=== PATIENT | female | born 1960 | race Caucasian/White ===

== ENCOUNTER 2021-08-07 10:33 | Emergency (ER) | payer OTHER, SELFPAY ==
[2021-08-07 10:46] VITALS: BP 153/89; PULSE 76; RESP 16; TEMP 36.2; O2SAT 99
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
== END 2021-08-07 12:00 | disposition home or self-care (01) ==
PROVIDERS: Emergency Provider Emergency Medicine; PCP Internal Medicine Geriatric Medicine
DX: R07.89 Other chest pain (principal)
CPT/HCPCS: 99203; G0463

== ENCOUNTER 2021-08-13 17:30 | Outpatient (CLI) | payer BC, SELFPAY ==
--- NOTE | ~2021-08-13 | MM_ITS ---
EXAMINATION: MM screening [facility] BI w cristino HISTORY: Screening mammogram TECHNIQUE: Craniocaudal and mediolateral oblique 3-D tomosynthesis images were obtained and synthetic 2-D images were generated. CAD analysis was submitted and interpreted. COMPARISON: 06/05/2015, 08/17/2012, 07/25/2011 BREAST PARENCHYMAL COMPOSITION: There are scattered areas of fibroglandular density. FINDINGS: There is no evidence of suspicious mass, calcification, or architectural distortion to sugg est malignancy in either breast. There has been no suspicious interval change. IMPRESSION: 1. No mammographic evidence of malignancy. 2. Recommend routine screening mammography in one year. BI-RADS Category 1: Negative Reviewed, dictated and finalized at location A. LS TRAINER
== END 2021-08-13 17:31 | disposition home or self-care (01) ==
PROVIDERS: PCP Internal Medicine Geriatric Medicine; Visit Provider Internal Medicine Geriatric Medicine
DX: Z12.31 Encounter for screening mammogram for malignant neoplasm of breast (principal)
CPT/HCPCS: 77063; 77067

== ENCOUNTER 2024-09-13 08:03 | Emergency (ER) | payer MEDICARE, SELFPAY ==
--- NOTE | ~2024-09-13 | XR_ITS ---
EXAMINATION: XR chest 1V portable DATE: 09/13/2024 10:40 INDICATION: Cough TECHNIQUE: frontal view of the chest was obtained. COMPARISON: Chest radiograph dated 10/18/17 FINDINGS: Calcified nodules in the right lower lung zone consistent with old granulomatous disease. No other ai rspace opacities, pulmonary edema, pleural effusion or pneumothorax. The cardiomediastinal silhouette is normal. Anterior plate-screw fixation for lower cervical anterior spinal fusion. IMPRESSION: 1. No acute cardiopulmonary disease. Reviewed, dictated and finalized at location A. CAR RENOVATOR
--- NOTE | 2024-09-13 08:08 | ECG_ITS ---
Test Date: 2024-09-13 08:11:35 Measurements Intervals [place] Rate: 117 P: 43 DC: 159 QRS: 48 QRSD: 86 T: 53 QT: 296 QTc: 414 Interpretive Statements SINUS TACHYCARDIA ABNORMAL ECG No previous ECG available for comparison Electronically Signed On 09-13-2024 08:13:08 BRICK OFF BEARER by Ashok Villanueva D.O.
[2024-09-13 08:10] VITALS: BP 162/83; PULSE 113; RESP 24; TEMP 36.5; O2SAT 98
--- OUTSIDE RECORDS SUMMARY | 2024-09-13 08:14 | XMS_ITS | Referral Summary ---
Author Organization [facility] Address [address] [place] [address] Care Team Providers Care Statistics Manager Name Role Phone Unavailable Primary Care Provider Unavailabl e Source Comments [facility],non-owned Affiliates and Associated Physician Practices is amultiple site organization consisting of ambulatory clinics and hospital sitesin [place], [place], [place] and [place]. This disclosure is being madepursuant to the Care Everywhere program and may not contain all information available regarding this patient. Last updated 18.[facility] Social History Tobacco Use Types Packs/Day Years Used Date Smoking Tobacco: Never Assessed Sex and Gender Information Value Date Recorded Sex Assigned at Not on file Gender Identity Not on file Sexual Orientation Not on file Plan of Treatment Not on file
--- OUTSIDE RECORDS SUMMARY | 2024-09-13 08:14 | XMS_ITS | Clinical Summary ---
Author Organization [facility] Physician Office Building [address] [place] [phone] Care Team Providers Care Seed Analysis Laboratory Assistant Name Role Phone Edwin Epstein MD Primary Care Provider + Allergies Active Allergy Reactions Criticality Noted Date Comments Atorvastatin Other (See comments) Low 11/28/2021 Reaction: Medications sodium, potassium & mag sulfates (SUPREP BOWEL KIT) 17.5-3.13-1.6 gram recon solnIndications :Bowel Evacuation Mix bottle of Suprep with water and drink at 4pm, repeat and drink at 10pm day before procedure 354 mL 7 Active traZODone (DESYREL) 50 mg tablet Take 100 mg by mouth nightly 2 Active gabapentin (NEURONTIN) 300 mg capsule Take 600 mg by mouth 3 (three) times a day 2 Active clonazePAM (KlonoPIN) 1 mg tablet Take 1 mg by mouth nightly 2 Active baclofen (LIORESAL) 10 mg tablet Take 10 mg by mouth 3 (three) times a day as needed 2 Active ALPRAZolam (XANAX) 1 mg tablet Take 1 mg by mouth 3 (three) times a day 2 Active oxyCODONE (ROXICODONE) 10 mg tablet TAKE ONE TABLET BY MOUTH FOUR TIMES A DAY OR NEEDED 2 Active Active Problems No known active problems Surgical History Surgery Date Site/Laterality Comments CARPAL TUNNEL RELEASE 08/10/2000 - 08/09/2001 Bilateral MANDIBLE FRACTURE SURGERY 08/10/2002 - 08/09/2003 TMJ LUMBAR FUSION Family History Medical History Relation Name Comments Thyroid disease Mother Arthritis Other 1 Arthritis - (Ad ded by TW Conv) Thyroid disease Other 2 Thyroid Diso rder - (Added by TW Conv) Relation Name Status Comments Mother Other 1 Other 2 Social History Tobacco Use Types Packs/Day Years Used Date Smoking Tobacco: Never Smokeless Tobacco: Never Tobacco Cessation:Counseling Given: Not Answered PHQ-2 Answer Date Recorded PHQ-2 Total Score (If total score is 3 or more points, staff should administer the PHQ-9) 0 11/28/2021 Comments No Sex and Gender Information Value Date Recorded Sex Assigned at Not on file Legal Sex Female 1:49 AM UNDERGROUND SUPERVISOR Gender Identity Not on file Sexual Orientation Not on file Obstetrics History Para Term AB IAB SAB Ectopic Multiple Livin g Live Births 2 1 1 1 1 1 1 Date Outcome GA Total Labor Labor/2nd/3rd Weight Sex Type Anes PTL [place] A1 A5 Name Clin SAB 1980 Term 3.941 kg (8 lb 11 oz) Vag-S pont Living Last Filed Vital Signs Vital Sign Reading Time Taken Comments Blood Pressure 124/80 07/22/2022 4:09 PM UNDERGROUND SUPERVISOR Pulse 85 10/08/2012 2:27 PM UNDERGROUND SUPERVISOR Temperature - - Respiratory Rate - - Oxygen Saturation 99% 10/08/2012 2:27 PM UNDERGROUND SUPERVISOR Inhaled Oxygen Concentration - - Weight 88 kg (194 lb) 07/22/2022 4:09 PM UNDERGROUND SUPERVISOR Height 162.6 cm (5' 4 ) 07/22/2022 4:09 PM UNDERGROUND SUPERVISOR Body Mass Index 33.3 07/22/2022 4:09 PM UNDERGROUND SUPERVISOR Plan of Treatment Health Maintenance Due Date Last Done Comments Breast Cancer Screening-Mammogram 1959 Fall Risk Assessment 1959 Hepatitis C Screening 1959 Osteoporosis Screening-Bone Density Scan 1959 DTaP/Tdap/Td Vaccine (1 - Tdap) 1970 Hepatitis B Screening 1977 Zoster Vaccine (1 of 2) 2009 Depression Screening 11/28/2022 11/28/2021 Cervical Cancer Screening 07/22/2023 07/22/2022, Pneumococcal vaccine 65+ (1 of 1 - PCV) 2024 Well Visit 65+ 2024 11/28/2021 Influenza Vaccine (#1) 2024 Colon Cancer Screening-Colonoscopy 05/25/20272016 Colon Cancer Screening-CT Colonography Discontinued Colon Cancer Screening-DNA Stool Discontinued 05/25/20 Colon Cancer Screening-FIT Discontinued 05/25/2017 Colon Cancer Screening-Sigmoidoscopy Discontinued 05/10 Procedures Procedure Name Priority Date/Time Associated Diagnosis Comments PAP AND HIGH RISK HPV, REFLEX TO GENOTYPING Routine 07/22/2022 4:13 PM UNDERGROUND SUPERVISOR Atypical squamous cells of undetermined significance on cytologic smear of cervix (ASC-US) COLONOSCOPY REPORT 05/25/2017 from Last 3 Months or Most Recently Relevant to Health Maintenance Results * Pap and High Risk HPV, reflex to Genotyping (07/22/2022 4:13 PM UNDERGROUND SUPERVISOR) CLINICAL INFORMATION: [employer] [facility] Comment:ASCUS HPV+ LMP [facility] [facility] Comment:POST MENOPAUSAL Previous Pap [facility] [facility] Comment:NONE GIVEN Prev. Bx [facility] [employer] [facility] Comment:NONE GIVEN SOURCE: [facility] [employer] [facility] Comment:Cervix, Endocervix Pap, specimen adequacy [facility] Comment:SATISFACTORY FOR AMARA LUATION HPV interp [facility] Comment: Negative for intraepithelial lesion or malignancy. Atrophic pattern; predominantly parabasal cells Civil Clerk [facility] Comment: MASON CLARK(ASCP) CT Screening Location: [place] [address] [place] [address] Comment [facility] [employer] [facility] Comment: EXPLANATORY NOTE: The Pap is a screening test for cervical cancer. It is not a diagnostic test and is subject to false negative and false positive results. It is most reliable when a satisfactory sample, regularly obtained, is submitted with relevant clinical findings and history, and when the Pap result is evaluated along with historic and current clinical information. Human papillomavirus DNA, High Risk E6/E7 Not Detected NOT DETECTED [employer] [facility] [place] Comment: Not Detected High Risk HPV types (16,18,31,33,35,39,45,51,52, 56,58,59,66,68) were not detected. Other HPV types which cause anogenital lesions may be present. The significance of the other types of HPV in malignant processes has not been established. Methodology: Real Time PCR ? Thin prep 07/22/2022 4:13 PM UNDERGROUND SUPERVISOR 07/23/2022 2:46 AM UNDERGROUND SUPERVISOR Jaida Michelle RADIATION / CHEMISTRY TECHNICIAN LAB CYTOLOGY ORDERABLES Final Re sult [facility] [address] [place] [address] [employer] [address] [place] [address] * COLONOSCOPY REPORT (05/25/2017) Anatomical Region Laterality Modality Other Provider Scanning GI PROCEDURE ORDERABLES Final Result from Last 3 Months or Most Recently Relevant to Health Maintenance Insurance [address] OPEN ACCESS Care Teams Seed Analysis Laboratory Assistant Relationship Specialty [place] [id number] [address] [facility] [address] [place] [address] PCP - General Internal Medicine 04/06/17
--- OUTSIDE RECORDS SUMMARY | 2024-09-13 08:14 | XMS_ITS | Referral Summary ---
Author Organization [facility] Physician Office Building [address] [place] [phone] Care Team Providers Care Sld Teacher Name Role Phone Edwin Epstein MD Primary [...] Active Active Problems No known active problems Social History Tobacco Use Types Packs/Day Years Used Date Smoking Tobacco: Never Smokeless Tobacco: Never Tobacco Cessation:Counseling Given: Not Answered PHQ-2 Answer Date Recorded PHQ-2 Total Score (If total score is 3 or more points, staff should administer the PHQ-9) 0 11/28/2021 Comments No Sex and Gender Information Value Date Recorded Sex Assigned at Not on file Legal Sex Female 1:49 AM MUSEUM CURATOR Gender Identity Not on file Sexual Orientation Not on file Last Filed Vital Signs Vital Sign Reading Time Taken Comments Blood Pressure 124/80 07/22/2022 4:09 PM MUSEUM CURATOR Pulse 85 10/08/2012 2:27 PM MUSEUM CURATOR Temperature - - Respiratory Rate - - Oxygen Saturation 99% 10/08/2012 2:27 PM MUSEUM CURATOR Inhaled Oxygen Concentration - - Weight 88 kg (194 lb) 07/22/2022 4:09 PM MUSEUM CURATOR Height 162.6 cm (5' 4 ) 07/22/2022 4:09 PM MUSEUM CURATOR Body Mass Index 33.3 07/22/2022 4:09 PM MUSEUM CURATOR Plan of Treatment Not on file Procedures Procedure Name Priority Date/Time Associated Diagnosis Comments PAP AND HIGH RISK HPV, REFLEX TO GENOTYPING Routine 07/22/2022 4:13 PM MUSEUM CURATOR Atypical squamous cells of undetermined significance on cytologic smear of cervix (ASC-US) COLONOSCOPY REPORT 05/25/2017 from Last 3 Months or Most Recently Relevant to Health Maintenance Results * Pap and High Risk HPV, reflex to Genotyping (07/22/2022 4:13 PM MUSEUM CURATOR) CLINICAL INFORMATION: [employer] [facility] Comment:ASCUS HPV+ LMP [employer] [facility] Comment:POST MENOPAUSAL Previous Pap [employer] [facility] Comment:NONE GIVEN Prev. Bx [employer] [facility] Comment:NONE GIVEN SOURCE: [employer] [facility] Comment:Cervix, Endocervix Pap, specimen adequacy [facility] [employer] [facility] Comment:SATISFACTORY FOR AMARA LUATION HPV interp [employer] [facility] Comment: Negative for intraepithelial lesion or malignancy. Atrophic pattern; predominantly parabasal cells [facility] [employer] [facility] [employer] [facility] Comment: MASON CLARK(ASCP) CT Screening Location: [place] [address] [place], [place] [address] Comment [facility] [employer] [facility] Comment: EXPLANATORY NOTE: The Pap is a [...] High Risk E6/E7 Not Detected NOT DETECTED [employer] [facility] Comment: Not Detected High Risk HPV types (16,18,31,33,35,39,45,51,52, 56,58,59,66,68) were not detected. Other HPV types which cause anogenital lesions may be present. The significance of the other types of HPV in malignant processes has not been established. Methodology: Real Time PCR ? Thin prep 07/22/2022 4:13 PM MUSEUM CURATOR 07/23/2022 2:46 AM MUSEUM CURATOR Jaida Michelle NP LAB CYTOLOGY ORDERABLES Final Re sult [facility] [address] [place] [address] [employer] [address] [place] [address] * COLONOSCOPY REPORT (05/25/2017) Anatomical Region Laterality Modality Other Provider Scanning GI PROCEDURE ORDERABLES Final Result from Last 3 Months or Most Recently Relevant to Health Maintenance Insurance REPLACED BY [facility] OPEN ACCESS Care Teams Sld Teacher Relationship Specialty [place] [id number] [place] [address] PCP - General Internal Medicine 04/06/17
--- OUTSIDE RECORDS SUMMARY | 2024-09-13 08:14 | XMS_ITS | Encounter Summary ---
Author Organization [facility] Address [address] [place] [address] Care Team Providers Care Window Clerk Name Role Phone Unavailable Primary Care Provider Unavailabl e Encounter Details Date Type Department Care Team (Late st Contact Info) Description 10/09/2023 Lab Requisition [facility] [address] [place] [phone] Lencho Slater Jr., MD [address] [place] [address] Social History Tobacco Use Types Packs/Day Years Used Date Smoking Tobacco: Never Assessed Sex and Gender Information Value Date Recorded Sex Assigned at Not on file Gender Identity Not on file Sexual Orientation Not on file documented as of this encounter Plan of Treatment Not on file documented as of this encounter Procedures Procedure Name Priority Date/Time Associated Diagnosis Comments DERMATOPATHOLOGY Routine 10/08/2023 3:33 AM AUTOMOBILE SERVICE STATION MANAGER documented in this encounter Results * DERMATOPATHOLOGY (10/08/2023 3:33 AM AUTOMOBILE SERVICE STATION MANAGER) Case Report Dermatopathology Report ? Case: [id number] ? Authorizing Provider: ??Lencho Slater Jr., MD ??Collected: ? 10/08/2023 03:33 AM ? Ordering Location: ? [facility] ? Received: ?10/09/2023 12:53 PM ? Pathologist: ? Kasey Pillai, ? MD ? Specimen: ?Skin, right superior posterior neck ? 1:19 PM [facility] Final Diagnosis Specimen A. 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 1:19 PM [facility] Gross Description Specimen A: Received is one formalin filled container labeled with the patient's name and designated right superior posterior neck. The specimen consists of a shave biopsy measuring 7x7x3 mm. Jar 0. 1:19 PM [facility] Microscopic Description Specimen A. SKIN, right superior posterior neck: Sections show a proliferation of blood vessels in lobules lined by uniform endothelial cells and by fibrous septa. The stroma is fibrotic and contains a mixed inflammatory cell infiltrate. The overlying epidermis is eroded. 1:19 PM [facility]ER[facility] Disclaimer An external and internal positive and negative controls are appropriate for the histochemical, immunohistochemical and immunofluorescence stain(s) in this case (if any), except where stated explicitly. The performance characteristics of the stain(s) cited in this report were developed and its performance characteristic determined by the Dermatopathology Laboratory at [facility], directed by Dr. Nick Huff. These tests need not be, and therefore are not, approved by the [place] Food and Drug Administration. The tests are used for clinical purposes. Billing Codes Specimen Charges Stain Charges 42813 1 4 1:19 PM AUTOMOBILE SERVICE STATION MANAGER DERMATOPATHOLOGY LABORATORY Embedded Images 4 1:19 PM AUTOMOBILE SERVICE STATION MANAGER DERMATOPATHOLOGY LABORATORY Pathology/Cytolo gy TISSUE SPECIMEN FROM SKIN / Unknown 10/08/2023 3:33 AM AUTOMOBILE SERVICE STATION MANAGER 10/09/2023 12:53 PM AUTOMOBILE SERVICE STATION MANAGER Lencho Slater Jr., MD LAB - PATHOLOGY /CYTOLOGY ORDERABLES DERMATOPATHOLOGY LABORATORY [facility] - Department of Dermatology [address] [phone] documented in this encounter Visit Diagnoses Not on filedocumented in this encounter
--- OUTSIDE RECORDS SUMMARY | 2024-09-13 08:14 | XMS_ITS | Clinical Summary ---
Author Organization [facility] Address [address] [place] [address] Care Team Providers Care Back Shoe Worker Name Role Phone Unavailable Primary Care Provider Unavailabl e Source Comments [facility],non-owned Affiliates and Associated Physician Practices is amultiple site organization consisting of ambulatory clinics and hospital sitesin [place], [place], [place] and [place]. This disclosure is being madepursuant to the Care Everywhere program and may not contain all information available regarding this patient. Last updated 18.[facility] Social History Tobacco Use Types Packs/Day Years Used Date Smoking Tobacco: Never Assessed Sex and Gender Information Value Date Recorded Sex Assigned at Not on file Gender Identity Not on file Sexual Orientation Not on file Plan of Treatment Health Maintenance Due Date Last Done Comments BONE DENSITY TESTING 1960 COLOGUARD (AGES 45-75) - COL ON CA SCREENING 1959 COLON MONITORING 1959 COLONOSCOPY - COLON CA SCREENING 1959 CT COLONOGRAPHY - COLON CA SCREENING 1959 Colorectal Cancer Screening 1959 FIT - COLON CA SCREENING 1959 FLEX SIG - COLON CA SCREENING 1959 LIPID TESTING 1959 MAMMOGRAM 1959 PAP SMEAR 1959 HIV SCREENING 1974 HEPATITIS C SCREENING 03/30/1977 DTAP/TDAP/TD VACCINES (1 - Tdap) 1978 PNEUMOCOCCAL VACCINE 50+ (1 of 1 - PCV) 2009 ZOSTER VACCINE (1 of 2) 2009 COVID-19 VACCINE ( - 2023-2 5 season) 2024 INFLUENZA VACCINE (#1) 2024 DEPRESSION SCREENING 08/10/2024 Respiratory Syncytial Virus (RSV) Vaccine Pt: or over 60 yrs (1 - 1-dose 75+ series) 2034 HEPATITIS B VACCINE Aged Out No longe r eligible based on patient's age to complete this topic HIB VACCINE Aged Out No longer eligi ble based on patient's age to complete this topic HPV VACCINE Aged Out No longer eligi ble based on patient's age to complete this topic MENINGOCOCCAL (Group B) VACCINE Aged Out No longer eligible based on patient's age to complete this topic MENINGOCOCCAL VACCINE Aged Out No jasson margy eligible based on patient's age to complete this topic
--- OUTSIDE RECORDS SUMMARY | 2024-09-13 08:14 | XMS_ITS | Data Portability ---
[facility] Address [address] [place] [address] Assessment No assessment recorded. Plan of Treatment Reminders Order Date Submit Date Provider Last Modified By Organization Details Last Modified Time Details Appointments None recorded. Lab pap, IG + HPV, cervical 2014 015 [facility], [address] [facility], [address], [place], [address], 5 07:30:26 pap, IG + HPV, cervical 2018 019 [facility], [address] [facility], [address], [place], [address], 9 06:09:11 Referral gastroent erologist referral 2014 015 HOLLY Bob MD, [address] [place], [address], 5 10:15:39 general surgeon referral 2014 016 [email or web address] Kelly MD, [address] [facility], [place], [address], 6 12:43:07 Procedures None recorded. Surgeries None recorded. Imaging mammogram , screening 2014 015 [email or web address] [facility], [address], [address], [place], [address], 5 09:13:15 MAMMO, screening , bilateral 2018 019 [facility], [address], [place] [facility], [place], [address], 9 17:41:35 Medication Orders estradiol 10 mcg vaginal tablet 2018 019 [facility] [id number], [address], 9 17:42:18 multivita min tablet 2018 019 [facility] [id number], [address], 9 17:41:30 Calcium with Vitamin D 600 mg-10 mcg (400 unit) tablet 2018 019 [facility] [address], [address], 9 17:41:31 Patient TargetsNo targets recorded. Patient Instructions Encounter Date Encounter Id Patient Instructions Last Modified By Organization Details Last Modified Time 05/31/2015 [id number] hemorrhoids: care instructions [email or web address] Not available 06/01/2015 09:40:27 09/23/2018 [id number] kegel exercises [facility] Not availabl e 09/23/2018 17:40:25 mammogram: about this test radha Not available 09/23/2018 17:41:35 Reason for Referral Referring Physician: Eric price [employer], Encounter Date: 05/31/2015 General Surgeon Referral for Hemorrhoids Referring Physician: Eric Sloan [employer], Encounter Date: 05/31/2015 Results Created Date Observation Date Name Description Value Unit Range Abnormal Flag Note LastModifiedBy Organization Detail LastModifiedTime 06/01/20 15 06/04/2015 pap, IG + HPV, cervi giuliana HPV aptima NEGATI VE negati ve THIS TEST DETEC TS FOURT EEN HIGH- RISK HPV TYPES (16/1 8/31/ 33/35 /39/4 5/ 51/52 /56/5 8/59/ 66/68 ) WITHO PAT BARNHART ATION . Not Available [facility] ([facility]) [address] [facility], [place], [address], 06/05/2015 07:30:26 06/01/20 15 06/05/2015 pap, IG + HPV, cervi giuliana diagnosis: SEEMA JOSEPH ALESIA FOR INTRA EPITH ELIAL LESIO N AND JAN LAI . CELLU LAR RAMOS ES ASSOC IATED WITH ATROP HY ARE PRESE NT. Not Available [facility] ([facility]) [address] [facility], [place], [address], 06/05/2015 07:30:26 06/01/20 15 06/05/2015 pap, IG + HPV, cervi giuliana specimen adequacy: SEEMA Horan SATIS FACTO RY FOR EVALU ATION . ENDOC ERVIC AL COMPO NENT MAY NOT BE DISTI NGUIS HED IN CASES OF ATROP HY. Not Available [facility] ([facility]) [address] [facility], [place], [address], 06/05/2015 07:30:26 06/01/20 15 06/05/2015 pap, IG + HPV, cervi giuliana performed by: SEEMA Betancourt, CYTOTj Horan (ASCP ) Not Available [facility] ([facility]) [address] [place], [address], 06/05/2015 07:30:26 06/01/20 15 06/05/2015 pap, IG + HPV, cervi giuliana . . Not Available [facility] ([facility]) [address] [place], [address], 06/05/2015 07:30:26 06/01/20 15 06/05/2015 pap, IG + HPV, cervi giuliana note: SEEMA Horan THE PAP SMEAR IS A SCREE FLORI TEST DESIG KEVIN TO AID IN THE DETEC TION OF RICHARD LIGNA NT AND MALIG NANT CONDI TIONS OF THE UTERI NE CERVI X. IT IS NOT A DIAGN OSTIC PROCE DURE AND SHOUL D NOT BE USED THE SOLE MEANS OF DETEC TING CERVI GIULIANA CANCE R. BOTH FALSE -POSI TIVE AND FALSE -NEGA TIVE REPOR TS DO OCCUR . Not Available [facility] ([facility]) [address] [place], [address], 06/05/2015 07:30:26 06/01/20 15 06/05/2015 pap, IG + HPV, cervi giuliana test methodology: COMMEN T THIS LIQUI D BASED THINP REP(R ) PAP TEST WAS CÉSAR LUNA WITH THE USE OF AN IMAGE GUIDE Kamilah Hooker. Not Available [facility] ([facility]) [address] [place], [address], 06/05/2015 07:30:26 09/23/19 19 09/27/2018 pap, IG + HPV, cervi giuliana diagnosis: Commen t NEGAT ALESIA FOR INTRA EPITH ELIAL LESIO N OR JAN LAI . CELLU VISHAL RAMOS ES ASSOC IATED WITH ATROP HY ARE PRESE NT. Not Available [facility] ([facility]) [address] [place], [address], 09/28/2018 06:09:11 09/23/1909/27/2018 pap, IG + HPV, cervi giuliana specimen adequacy: Commen t Satis facto ry for evalu ation . Endoc ervic al compo nent may not be disti nguis hed in cases of atrop hy. Not Available [facility] ([facility]) [address] [place], [address], 09/28/2018 06:09:11 09/23/19 19 09/27/2018 pap, IG + HPV, cervi giuliana clinician provided ICD10: Commen t Z01.4 19 Not Available [facility] ([facility]) [address] [place], [address], 09/28/2018 06:09:11 09/23/1909/27/2018 pap, IG + HPV, cervi giuliana performed by: Toño Zuluaga (ASCP ) Not Available [facility] ([facility]) [address] [place], [address], 09/28/2018 06:09:11 09/23/1909/27/2018 pap, IG + HPV, cervi giuliana . . Not Available [facility] ([facility]) [address] [place], [address], 09/28/2018 06:09:11 09/23/1909/27/2018 pap, IG + HPV, cervi giuliana note: Seema horan The Pap smear is a scree flori test desig kevin to aid in the detec tion of richard ligna nt and malig nant condi tions of the uteri ne cervi x. It is not a diagn ostic proce dure and shoul d not be used as the sole means of detec ting cervi giuliana cance r. Both false -posi tive and false -nega tive repor ts do occur . Not Available [facility] ([facility]) [address] [place], [address], 09/28/2018 06:09:11 09/23/1909/27/2018 pap, IG + HPV, cervi giuliana test methodology: Seema horan This liqui d based ThinP rep(R ) pap test was scree kevin with the use of an image guide kamilah hooker. Not Available [facility] ([facility]) [address] [place], [address], 09/28/2018 06:09:11 09/23/1909/28/2018 pap, IG + HPV, cervi giuliana HPV aptima Negati ve negati ve This test detec ts fourt een high- risk HPV types (16/1 8/31/ 33/35 /39/4 5/ 51/52 /56/5 8/59/ / ) witho ut puneete renti ation . Not Available [facility] ([facility]) [address], [place], [address], 09/28/2018 06:09:11 06/06/20 15 06/06/2015 dexa PT NAME: DAVID SELBY : 1959 PT SEX/AG E: / PT ACCT NUMBER : [id number] PT MR#: [id number] ROOM/B ED: PT STATUS : REG CLI DATE OF EXAMIN ATION: ORDERI PHYSIC SALLIE: ERIC ALBERT M.Sujatha ATTEND [facility] PHYSIC SALLIE: ERIC ALBERT , M.D. DICTAT [facility] PHYSIC SALLIE: Tj CRUZ M.D. [id number] 6.001A [place] 17:56: 00 41.007 2MAM (ANDREW) : DIGITA L MAMM SCREEN -DIVINA INDICA TION: Screen ing. TECHNI QUE: Screen ing digita l mammog tyler submit [place]. CAD analys is submit [place] and interp reted. COMPAR SANTO: 013 FINDIN GS: There has been no signif icant change when compar santo was made to prior films. Breast compos ed of scatte red areas of fibrog landul ar densit y. No mammog raphic eviden ce for malign ben in either breast . Regula r clinic al breast examin ation in annual mammog josias are recomm ended. IMPRES DEISI: 1: NO MAMMOG RAPHIC EVIDEN CE OF MALIGN BEN IN EITHER BREAST AND NO CHANGE . RECOMM ENDATI ON: Routin e yearly screen ing mammog tyler and regula r clinic al breast examin ation are recomm ended. BI-RAD S CATEGO RY 1 - NEGATI VE __ Review ed, dictat ed and finali zed at Locati on A. __ Electr onical ly signed by: ASHUTOSH CRUZ Date: Time: 08:50 ASHUTOSH CRUZ M.D.__ ___ [facility] [address] [place] [address] [facility] (Imaging) [address], [place], [address], 09/23/2018 17:44:27 06/28/20 15 06/27/2015 imagi ng/di theodoraos tic resul t No observ ation record ed. [facility] Not Available 09/23 17:44:27 Result Notes None recorded. Problems Name Problem SNOMED Code Status Onset Date Resolution Date Notes Provider Name and Address Organization Details Recorded Time Hemorrhoids 50921728 Active Eric Nathalia evangelista [facility] 5 19:35:23 Problem Notes None recorded. Procedures Surgical History Date Name Laterality Status Provider Name and Address Organization Details Recorded Time 6 partial carpectomy completed Adalgisa Sanders MA [facility] 09/23/2018 17:14:41 6 Orthopedic Surgery completed Adalgisa Sanders [place] - [facility] 09/23/2018 17:15:53 5 Most Recent Mammogram completed Adalgisa Sanders [place] - [facility] 09/23/2018 17:13:28 5 Date of Last Pap Smear completed Adalgisa Sanders [place] [facility] 09/23/2018 17:12:55 1 Orthopedic Surgery completed Nan Simpson [place] [facility] 05/31/2015 18:04:19 1 Myomectomy completed Nan Simpson [place] - [facility] 05/31/2015 18:04:19 1 Orthopedic Surgery completed Adalgisa Sanders MA [facility] 09/23/2018 17:15:21 Imaging Results Imaging Date Name Status LastModified by Organiz [facility] Details LastModified Time 06/06/2015 dexa completed [facility] (Imaging) [address], [place], [address], 09/23/2018 17:44:27 06/27/2015 imaging/diag nostic result completed [facility] Information not available 09/23/2018 17:44:27 Procedure Notes None recorded. Medical Equipment None Reported. Allergies No known drug allergies Medications Name Sig Start Date Stop Date Status Note LastModified by Organization Details LastModified Time multivitamin tablet Take 1 tablet every day by oral route. 2018 active Not Available Not Available Not Avai lable prednisone 10 mg tablet 09/23 completed Not Available Not Available Not Available trazodone 50 mg tablet active Not Available Not Available No t Available azithromycin 250 mg tablet 09/23 completed Not Available Not Available Not Available alprazolam 1 mg tablet active Not Available Not Available No t Available benzonatate 200 mg capsule 09/23 completed Not Available Not Available Not Available clonazepam 1 mg tablet active Not Available Not Available No t Available doxycycline monohydrate 100 mg tablet 09/23 completed Not Available Not Available Not Available butalbital-a cetaminophen -caffeine 50 mg-325 mg-40 mg tablet 09/23 completed Not Available Not Available Not Available hydromorphon e 2 mg tablet active Not Available Not Available Not Available ciprofloxaci n 0.3 % eye drops 09/23 completed Not Available Not Available Not Available baclofen 10 mg tablet active Not Available Not Available No t Available oseltamivir 75 mg capsule active Not Available Not Available Not Available gabapentin 300 mg capsule active Not Available Not Available Not Available codeine 10 mg-guaifenes in 100 mg/5 mL oral liquid active Not Available Not Available Not Available methylpredni solone 4 mg tablets in a dose pack active Not Available Not Available No t Available amoxicillin 875 mg-potassium clavulanate 125 mg tablet 09/23 completed Not Available Not Available Not Available Ventolin HFA 90 mcg/actuatio n aerosol inhaler 09/23 completed Not Available Not Available Not Available calcium 600 mg (as carbonate)-v itamin D3 10 mcg (400 unit) tablet TAKE ONE TABLET BY MOUTH TWICE A DAY 2019 active Not Available Not Available Not Avai lable oxycodone 10 mg tablet active Not Available Not Available No t Available estradiol 10 mcg vaginal tablet Insert 1 tablet 3 times a week by vaginal route. 2018 active Not Available Not Available Not Avai lable Fluvirin 8593-9565 45 mcg (15 mcg x 3)/0.5 mL intramuscula r suspension 09/23 completed Not Available Not Available Not Available Vitals Date Recorded Body height Body mass index (BMI) Body weight Systolic blood pressure Diastolic blood pressure Provider Name and Address Organization Details Last Updated DateTime 09/23/2018 162.56 cm 31.4 kg/m2 46919.4 g 138 mm[Hg] 84 mm[Hg] Adalgisa Sanders MA [facility] 9 17:20:33 Date Recorded Body height Body mass index (BMI) Body weight Systolic blood pressure Diastolic blood pressure Provider Name and Address Organization Details Last Updated DateTime 05/31/2015 162.56 cm 29 kg/m2 48310.11 053 g 154 mm[Hg] 90 mm[Hg] Nan Simpson MA [facility] 5 18:14:33 Social History Question Answer Notes LastModified by Organizat ion Details LastModified Time Tobacco Smoking Status Never Smoker Nan Simpson MA null, [facility] 05/31/2015 18:08:00 Do You Have An Advance Directive? No Information not available 05/31/2015 What Is Your Level Of Alcohol Consumption? Occasional Information not available 05/31/2015 Is Blood Transfusion Acceptable In An Emergency? Yes Information not available 05/31/2015 What Is Your Level Of Caffeine Consumption? Moderate Information not available 05/31/2015 How Much Tobacco Do You Chew? None Information not available 05/31/2015 Are You Currently Employed? Yes Information not available 05/31/2015 What Type Of Diet Are You Following? REGULAR Information not available 05/31/2015 Which Illicit Or Recreational Drugs Have You Used? 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 With Others Information not available 05/31/2015 What Was The Date Of Your Most Recent Tobacco Screening? 09/23/2018 Information not available 03/03/2019 How Many Children Do You Have? 1 Information not available 05/31/2015 Performs Monthly Self-breast Exam? Yes Information not available 05/31/2015 What Is Your Relationship Status? Information not available 05/31/2015 Seat Belts Used Routinely Yes Information not available 05/31/2015 Are You Sexually Active? No Information not available 05/31/2015 General Stress Level High Information not available 05/31/2015 Do You Use Sunscreen Routinely? Yes Information not available 05/31/2015 Sex: Unknown Functional Status Question Answer Note LastModified by Organization D etails LastModified Time What is your exercise level? Heavy Information not available 05/31/2015 Mental Status None recorded. Family History Relationship Description Onset Age of this Age Resolved Age Notes LastModified by Organization Details LastModified Time Father Chronic obstructive pulmonary disease [email or web address] Not available 05/31 19:33:22 Father Pulmonary emphysema mwasserman Not available 05/31 19:33:22 Mother Thyroiditis mwasserman Not avai lable 05/31/2015 19:33:22 Paternal Grandfather Arthritis x 2 mwasserman Not available 1 19:33:22 Medical History Condition Response Heart Problems N Other N Breast Cancer N Thyroid Problems N Kidney or Bladder Problems N GI Problems N Lung Disease N Depression N Acne N Breast Problem N Eating Disorder N Anemia N Anesthesia Complications N Headaches/Migraines N Anxiety Disorder N Diabetes N Ovarian Cancer N Blood Transfusions N Arthritis N Polyps N Infertility N Acid Reflux (GERD) N Cancer N Stroke N Abuse/Domestic Violence N Asthma N Endometriosis N High Cholesterol N Hepatitis N Heart Disease N Fibromyalgia N Pre-Eclampsia N Hypertension N Osteoporosis N Kidney Disease N Gynecological History Statement/Question Response Abnormal Pap N On BCP's at Conception? N STIs/STDs Y HPV Vaccine N Most Recent Mammogram 06/05/2015 Age at Menarche 11 Current Control Method Spermicide Age at First Child 27 If Post Menopausal, Age at Menopause 41 Sexually Active? Y Menses Monthly N Date of Last Pap Smear 06/01/2015 Sexual Problems? N LMP Unknown Desired Control Method None Obstetrics History GPAL:G 3 P 1 0 2 1 Type Value Multiple Births 0 Full Term 1 Induced 0 Spontaneous 2 Premature 0 Living 1 Ectopics 0 Total 3 Past Encounters Encounter ID Performer Location Encounter Start Date Encounter Closed Date Diagnosis/Indication Diagnosis SNOMED-CT Code Diagnosis ICD10 Code Diagnosis Note [id number] Eric Cruz ([employer]) [address] [place] [phone] 05/31/2015 15:40:55 05/31/2015 19:38:14 Gynecologic examination 09543775 Z01.419 Screening mammography 24 692038 Z12.31 Hemorrhoids 06873099 K64 .9 [id number] Eric Cruz ([employer]) [address] [place] [address] [phone] 0 09/23/2018 15:53:37 09/24/2018 12:57:27 Gynecologic examination 05154316 Z01.419 Screening mammography 24 205972 Z12.31 Cystocele without uterine prolapse 80912924 N81.10 Health Concerns Section Related Observation LastModified by Organization Detai ls LastModified Time None Recorded Concern Status LastModified by Organization Details LastModified Time None Recorded Advance Directives Directive N: Payers Encounter Date Sequence Insurance Name Policy Number Policy Harden Covered Member ID Harden Member ID Guarantor Name 05/31/2015 1 [facility] (MEDICAID HMO) [id number] Monserrat Patel [id number] Monserrat Patel 09/23/2018 1 [facility] (MEDICAID HMO) [id number] Monserrat Patel [id number] Monserrat Patel Notes Date Note Type Note Provider Name and Address Organization Details Recorded Time 09/23/2018 text/html Annual GYNReport ed bypatient.Urinary symptoms:No hematuria Vulva:No genital lesion Vagina:Normal vaginal discharge Breast:No breast pain; No breast lump; No nipple discharge Preventive measures:Encourage self breast examination; Encourage regular exercise; Encourage no tobacco use; Encourage regular mammograms starting age [age]yo [id number] here for [employer]. Patient reports she thinks she has a possible prolapse. Eric Sloan [facility] 09/24/2018 12:22:32 OBGyn Episode Ob Episode Information Episode Created Date Number of Fetuses Patient Bloodtype Patient rh Status Prepregnancy Weight lbs Domestic Partner Domestic Partner Phone Father Name Software Project Lead Status 05/31/20 15 1 CLOSED Fetus Data First Name Last Name Admitted to NICU Weight (g) Sex Living Outcome Pediatric Complications Fetus ID Race Codes Race Delivery Type 3940.58 05 F Full Term [id number] Vaginal Cyril Calculation Initial Cyril Date Initial Exam Date Initial Exam Provider Initial Ultrasound Date Last Menstrual Period Date Ultra Sound Weeks Gestation 0 Eighteen To Twenty Week Cyril Update Ultra Sound Date Fundal Height At Umbil Quickening Date Ultra Sound Latest Weeks Gestation Final Cyril Confirmed By Final Cyril Confirmed Date Final Cyril Date Ultra Sound Latest Days Gestation 0 0 Menstrual History Last Menstrual Date Menses Monthly On Bcp Conception Prior Menses Frequency Hcg Plus Date Menarche Onset Age Delivery Information Delivery Date Delivery Type Labor Anesthesia Weeks Gestation Incision Type Labor Labor Length Hrs Delivered By Post Complications Tubal Sterilization Discharge Date Comments 7 None 40 Discharge Information Feeding Method Contraceptive Method Maternal HG B and HCT Levels
--- OUTSIDE RECORDS SUMMARY | 2024-09-13 08:14 | XMS_ITS | Patient Health Summary ---
Author Organization [facility] Address [address] [place] [address] Care Team Providers Care Aircraft Charter Dispatcher Name Role Phone Unavailable Primary Care Provider Unavailabl e Note from [facility],non-owned Affiliates and Associated Physician Practices is amultiple site organization consisting of ambulatory clinics and hospital sitesin [place], [place], [place] and [place]. This disclosure is being madepursuant to the Care Everywhere program and may not contain all information available regarding this patient. Last updated 18.[facility] Social History Tobacco Use Types Packs/Day Years Used Date Smoking Tobacco: Never Assessed Sex and Gender Information Value Date Recorded Sex Assigned at Not on file Gender Identity Not on file Sexual Orientation Not on file Procedures * DERMATOPATHOLOGY(Performed 10/08/2023) Results * DERMATOPATHOLOGY (10/08/2023 3:33 AM [facility]) Case Report Dermatopathology Report ? Case: [id number] ? Authorizing Provider: ??Lencho Slater Jr., MD ??Collected: ? 10/08/2023 03:33 AM ? Ordering Location: ? [facility] ? Received: ?10/09/2023 12:53 PM ? Pathologist: ? Kasey Pillai, ? MD ? Specimen: ?Skin, right superior posterior neck ? 1:19 PM [facility] DERMATOPATH[facility]Y [facility]ORATORY Final Diagnosis Specimen A. 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 1:19 PM [facility] DERMATOPATH[facility]Y [facility]ORATORY Gross Description Specimen A: Received is one formalin filled container labeled with the patient's name and designated right superior posterior neck. The specimen consists of a shave biopsy measuring 7x7x3 mm. Jar 0. 1:19 PM [facility] DERMATOPATH[facility]Y [facility]ORATORY Microscopic Description Specimen A. SKIN, right superior posterior neck: Sections show a proliferation of blood vessels in lobules lined by uniform endothelial cells and by fibrous septa. The stroma is fibrotic and contains a mixed inflammatory cell infiltrate. The overlying epidermis is eroded. 1:19 PM [facility]ERMATOPATH[facility]ORATORY Disclaimer An external and internal positive and negative controls are appropriate for the histochemical, immunohistochemical and immunofluorescence stain(s) in this case (if any), except where stated explicitly. The performance characteristics of the stain(s) cited in this report were developed and its performance characteristic determined by the Dermatopathology Laboratory at [facility], directed by Dr. Nick Huff. These tests need not be, and therefore are not, approved by the [place] Food and Drug Administration. The tests are used for clinical purposes. Billing Codes Specimen Charges Stain Charges 98829 1 4 1:19 PM [facility] D[facility]MAT[facility]ORATORY Embedded Images 4 1:19 PM [facility]ORY Pathology/Cytolo gy TISSUE SPECIMEN FROM SKIN / Unknown 10/08/2023 3:33 AM [facility] 10/09/2023 12:53 PM [facility] Lencho Slater Jr., MD LAB - PATHOLOGY /CYTOLOGY ORDERABLES DERMATOPATHOLOGY LABORATORY [facility] - Department of Dermatology [facility] [address] [place] [address], [address] [phone]
[2024-09-13 08:36] LABS: Basophils Percent Auto 0.4 % (0.2-1.2); Eosinophils Percent Auto 0.2 % (0-4.4); Hematocrit 38.5 % (37.0-47.0); Hemoglobin 12.5 g/dL (12.0-15.0); Immature Granulocyte Absolute 0.01 K/mm3 (0.00-0.031); Immature Granulocyte Percent A 0.2 % (0-0.5); Lymphocytes Percent Auto 13.1 % (18.3-44.2); Mean Corpuscular HGB Conc 32.5 g/dl (32-36); Mean Corpuscular Hemoglobin 28.2 pg (26-34); Mean Corpuscular Volume 86.7 fl (80-100); Mean Platelet Volume 9.3 fl (7.4-10.4); Monocytes Absolute Auto 1.1 K/mm3 (0.1-0.6); Monocytes Percent Auto 23.4 % (2.6-8.5); Neutrophils Absolute Auto 2.9 K/mm3 (1.3-6.7); Neutrophils Percent Auto 62.7 % (45.5-73.1); Platelet Count Result 239 k/mm3 (150-375); Red Blood Count 4.44 M/mm3 (4.2-5.4); Red Cell Distribution Width 12.4 % (11.5-14.5); White Blood Count 4.6 K/mm3 (4.5-10.0)
[2024-09-13 08:47] LABS: Alanine Aminotransferase 46 U/L (6-35); Albumin Level 4.8 g/dL (3.5-5.1); Alkaline Phosphatase 65 U/L (38-126); Anion Gap 16 mmol/L (4-12); Aspartate Amino Transferase 49 U/L (14-36); Bilirubin,Total 0.4 mg/dL (0.2-1.3); Blood Urea Nitrogen 12 mg/dL (7-17); Calcium 9.4 mg/dL (8.4-10.2); Carbon Dioxide 25 mmol/L (22-30); Chloride 96 mmol/L (98-107); Estimated CRCL calculation 65 ml/min; Estimated Glomerular Filt Rate > 60; Glucose 167 mg/dL (65-110); Sodium 137 mmol/L (137-145)
[2024-09-13 08:48] LABS: INR 1.1; Prothrombin Time 14.1 Seconds (11.1-14.7)
[2024-09-13 08:49] LABS: Partial Thromboplastin Time 29.5 Seconds (22.3-36.8)
[2024-09-13 08:58] LABS: Troponin I < 0.012 ng/mL (0.000-0.034)
[2024-09-13 09:01] VITALS: O2SAT 95
[2024-09-13 09:06] VITALS: BP 142/88; PULSE 110; RESP 15; O2SAT 96
[2024-09-13 09:13] LABS: Influenza A QL RT-PCR Positive (Negative); Influenza B QL RT-PCR Negative (Negative); RSV RNA, RT-PCR Negative (Negative); SARS-CoV-2 RNA PCR Negative (Negative)
--- OUTSIDE RECORDS SUMMARY | 2024-09-13 09:56 | XMS_ITS | Clinical Summary ---
Author Organization [facility] Address [address] [place] [address] Care Team Providers Care Stretcher Operator Name Role Phone Unavailable Primary Care Provider Unavailabl e Source Comments [facility],non-owned Affiliates and Associated Physician Practices is amultiple site organization consisting of ambulatory clinics and hospital sitesin [place], [place], [place] and [place]. This disclosure is being madepursuant to the Care Everywhere program and may not contain all information available regarding this patient. Last updated 18.[facility] Social History Tobacco Use Types Packs/Day Years [...]
--- OUTSIDE RECORDS SUMMARY | 2024-09-13 09:56 | XMS_ITS | Referral Summary ---
Author Organization [facility] Physician Office Building [address] [place] [phone] Care Team Providers Care Revenue Manager Name Role Phone Edwin Epstein MD Primary [...] on file Legal Sex Female 1:49 AM STORE MGR Gender Identity Not on file Sexual Orientation Not on file Last Filed Vital Signs Vital Sign Reading Time Taken Comments Blood Pressure 124/80 07/22/2022 4:09 PM STORE MGR Pulse 85 10/08/2012 2:27 PM STORE MGR Temperature - - Respiratory Rate - - Oxygen Saturation 99% 10/08/2012 2:27 PM STORE MGR Inhaled Oxygen Concentration - - Weight 88 kg (194 lb) 07/22/2022 4:09 PM STORE MGR Height 162.6 cm (5' 4 ) 07/22/2022 4:09 PM STORE MGR Body Mass Index 33.3 07/22/2022 4:09 PM STORE MGR Plan of Treatment Not on file Procedures Procedure Name Priority Date/Time Associated Diagnosis Comments PAP AND HIGH RISK HPV, REFLEX TO GENOTYPING Routine 07/22/2022 4:13 PM STORE MGR Atypical squamous cells of undetermined significance on cytologic smear of cervix (ASC-US) COLONOSCOPY REPORT 05/25/2017 from Last 3 Months or Most Recently Relevant to Health Maintenance Results * Pap and High Risk HPV, reflex to Genotyping (07/22/2022 4:13 PM STORE MGR) CLINICAL INFORMATION: [facility] Comment:ASCUS HPV+ LMP [facility] Comment:POST MENOPAUSAL Previous Pap [facility] Comment:NONE GIVEN Prev. Bx [facility] Comment:NONE GIVEN SOURCE: [facility] Comment:Cervix, Endocervix Pap, specimen adequacy [facility] Comment:SATISFACTORY FOR AMARA LUATION HPV interp [facility] Comment: Negative for intraepithelial lesion or malignancy. Atrophic pattern; predominantly parabasal cells [employer] Press Operator [facility] Comment: MASON CLARK(ASCP) CT Screening Location: [place] [address] [place], [place] [address] Comment [facility] Comment: EXPLANATORY NOTE: The Pap [...] High Risk E6/E7 Not Detected NOT DETECTED [facility] Comment: Not Detected High Risk HPV types (16,18,31,33,35,39,45,51,52, 56,58,59,66,68) were not detected. Other HPV types which cause anogenital lesions may be present. The significance of the other types of HPV in malignant processes has not been established. Methodology: Real Time PCR ? Thin prep 07/22/2022 4:13 PM STORE MGR 07/23/2022 2:46 AM STORE MGR Jaida Michelle NP LAB CYTOLOGY ORDERABLES Final Re [facility]ult [facility] [address] [place] [phone] [facility] [address] [place] [address] * COLONOSCOPY REPORT (05/25/2017) Anatomical Region Laterality Modality Other Provider Scanning GI PROCEDURE ORDERABLES Final Result from Last 3 Months or Most Recently Relevant to Health Maintenance Insurance [facility] OPEN ACCESS Care Teams Revenue Manager Relationship Specialty [place] [address] [facility] [place] [address] PCP - General Internal Medicine 04/06/17
--- OUTSIDE RECORDS SUMMARY | 2024-09-13 09:56 | XMS_ITS | Encounter Summary ---
Author Organization [facility] Address [address] [place] [address] Care Team Providers Care Biological Technical Officer Name Role Phone Unavailable Primary Care Provider Unavailabl e Encounter Details Date Type Department Care Team (Late st Contact Info) Description 10/09/2023 Lab Requisition [facility] - Derm[facility] Lab [address] [place] [phone] Lencho Slater Jr., MD [address] [place] [address] Social History Tobacco Use Types Packs/Day Years [...] Diagnosis Comments DERMATOPATHOLOGY Routine 10/08/2023 3:33 AM TUBER MACHINE OPERATOR documented in this encounter Results * DERMATOPATHOLOGY (10/08/2023 3:33 AM TUBER MACHINE OPERATOR) Case Report Dermatopathology Report ? Case: [id number] ? Authorizing Provider: ??Lencho Slater Jr., MD ??Collected: ? 10/08/2023 03:33 AM ? Ordering Location: ? [facility] ? Received: ?10/09/2023 12:53 PM ? Pathologist: ? Kasey Pillai, ? MD ? Specimen: ?Skin, right superior posterior neck ? 1:19 PM [facility] DERMATOPATHOLOGY LABORATORY Final Diagnosis Specimen A. 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 1:19 PM [facility] DERMATOPATHOLOGY LABORATORY Gross Description Specimen A: Received is one formalin filled container labeled with the patient's name and designated right superior posterior neck. The specimen consists of a shave biopsy measuring 7x7x3 mm. Jar 0. 1:19 PM [facility] DERMATOPATHOLOGY LABORATORY Microscopic Description Specimen A. SKIN, right superior posterior neck: Sections show a proliferation of blood vessels in lobules lined by uniform endothelial cells and by fibrous septa. The stroma is fibrotic and contains a mixed inflammatory cell infiltrate. The overlying epidermis is eroded. 1:19 PM [facility] DERMATOPATHOLOGY LABORATORY Disclaimer An external and internal positive and negative controls are appropriate for the histochemical, immunohistochemical and immunofluorescence stain(s) in this case (if any), except where stated explicitly. The performance characteristics of the stain(s) cited in this report were developed and its performance characteristic determined by the Dermatopathology Laboratory at [facility], directed by Dr. Nick Huff. These tests need not be, and therefore are not, approved by the [place] Food and Drug Administration. The tests are used for clinical purposes. Billing Codes Specimen Charges Stain Charges 52117 1 4 1:19 PM TUBER MACHINE OPERATOR DERMATOPATHOLOGY LABORATORY Embedded Images 4 1:19 PM TUBER MACHINE OPERATOR DERMATOPATHOLOGY LABORATORY Pathology/Cytolo gy TISSUE SPECIMEN FROM SKIN / Unknown 10/08/2023 3:33 AM TUBER MACHINE OPERATOR 10/09/2023 12:53 PM TUBER MACHINE OPERATOR Lencho Slater Jr., MD LAB - PATHOLOGY /CYTOLOGY ORDERABLES DERMATOPATHOLOGY LABORATORY [facility] - Department of Dermatology [address], [address] [phone] documented in this encounter Visit Diagnoses Not on filedocumented in this encounter
--- OUTSIDE RECORDS SUMMARY | 2024-09-13 09:56 | XMS_ITS | Referral Summary ---
Author Organization [facility] Address [address] [place] [address] Care Team Providers Care Hub Inventory Specialist Name Role Phone Unavailable Primary Care Provider Unavailabl e Source Comments [facility],non-owned Affiliates and Associated Physician Practices is amultiple site organization consisting of ambulatory clinics and hospital sitesin [place], [place], [place] and [place]. This disclosure is being madepursuant to the Care Everywhere program and may not contain all information available regarding this patient. Last updated 18.[facility] Social History Tobacco Use Types Packs/Day Years Used Date Smoking Tobacco: Never Assessed Sex and Gender Information Value Date Recorded Sex Assigned at Not on file Gender Identity Not on file Sexual Orientation Not on file Plan of Treatment Not on file
--- OUTSIDE RECORDS SUMMARY | 2024-09-13 09:56 | XMS_ITS | Patient Health Summary ---
Author Organization [facility] Address [address] [place] [address] Care Team Providers Care Drafter Electronic Name Role Phone Unavailable Primary Care Provider Unavailabl e Note from [facility],non-owned Affiliates and Associated Physician Practices is amultiple site organization consisting of ambulatory clinics and hospital sitesin [place], [place], [place] and [place]. This disclosure is being madepursuant to the Care Everywhere program and may not contain all information available regarding this patient. Last updated 18.[facility] Social History Tobacco Use Types Packs/Day Years Used Date Smoking Tobacco: Never Assessed Sex and Gender Information Value Date Recorded Sex Assigned at Not on file Gender Identity Not on file Sexual Orientation Not on file Procedures * DERMATOPATHOLOGY(Performed 10/08/2023) Results * DERMATOPATHOLOGY (10/08/2023 3:33 AM SUPPORT ASSOCIATE) Case Report Dermatopathology Report ? Case: [id number] ? Authorizing Provider: ??Lencho Slater Jr., MD ??Collected: ? 10/08/2023 03:33 AM ? Ordering Location: ? [facility] ? Received: ?10/09/2023 12:53 PM ? Pathologist: ? Kasey Pillai, ? MD ? Specimen: ?Skin, right superior posterior neck ? 1:19 PM [facility] DERMATOPATHOLOGY LABORATORY Final Diagnosis Specimen A. 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 1:19 PM [facility] DERMATOPATHOLOGY LABORATORY Gross Description Specimen A: Received is one formalin filled container labeled with the patient's name and designated right superior posterior neck. The specimen consists of a shave biopsy measuring 7x7x3 mm. Jar 0. 1:19 PM [facility] DERMATOPATHOLOGY LABORATORY Microscopic Description Specimen A. SKIN, right superior posterior neck: Sections show a proliferation of blood vessels in lobules lined by uniform endothelial cells and by fibrous septa. The stroma is fibrotic and contains a mixed inflammatory cell infiltrate. The overlying epidermis is eroded. 1:19 PM [facility] DERMATOPATHOLOGY LABORATORY Disclaimer An external and internal positive and negative controls are appropriate for the histochemical, immunohistochemical and immunofluorescence stain(s) in this case (if any), except where stated explicitly. The performance characteristics of the stain(s) cited in this report were developed and its performance characteristic determined by the Dermatopathology Laboratory at [facility], directed by Dr. Nick Huff. These tests need not be, and therefore are not, approved by the [place] Food and Drug Administration. The tests are used for clinical purposes. Billing Codes Specimen Charges Stain Charges 65977 1 4 1:19 PM SUPPORT ASSOCIATE DERMATOPATHOLOGY LABORATORY Embedded Images 4 1:19 PM SUPPORT ASSOCIATE DERMATOPATHOLOGY LABORATORY Pathology/Cytolo gy TISSUE SPECIMEN FROM SKIN / Unknown 10/08/2023 3:33 AM SUPPORT ASSOCIATE 10/09/2023 12:53 PM SUPPORT ASSOCIATE Lencho Slater Jr., MD LAB - PATHOLOGY /CYTOLOGY ORDERABLES DERMATOPATHOLOGY LABORATORY [facility] - Department of Dermatology [facility] Medicine [address] [place] [address], [address] [phone]
--- OUTSIDE RECORDS SUMMARY | 2024-09-13 09:56 | XMS_ITS | Clinical Summary ---
Author Organization [facility] Physician Office Building [address] [place] [phone] Care Team Providers Care Envelope Folding Machine Operator Name Role Phone Edwin Epstein MD Primary [...] on file Legal Sex Female 1:49 AM SEWING TEACHER Gender Identity Not on file Sexual Orientation [...] Comments Blood Pressure 124/80 07/22/2022 4:09 PM SEWING TEACHER Pulse 85 10/08/2012 2:27 PM SEWING TEACHER Temperature - - Respiratory Rate - - Oxygen Saturation 99% 10/08/2012 2:27 PM SEWING TEACHER Inhaled Oxygen Concentration - - Weight 88 kg (194 lb) 07/22/2022 4:09 PM SEWING TEACHER Height 162.6 cm (5' 4 ) 07/22/2022 4:09 PM SEWING TEACHER Body Mass Index 33.3 07/22/2022 4:09 PM SEWING TEACHER Plan of Treatment Health Maintenance Due Date [...] REFLEX TO GENOTYPING Routine 07/22/2022 4:13 PM SEWING TEACHER Atypical squamous cells of undetermined significance on cytologic smear of cervix (ASC-US) COLONOSCOPY REPORT 05/25/2017 from Last 3 Months or Most Recently Relevant to Health Maintenance Results * Pap and High Risk HPV, reflex to Genotyping (07/22/2022 4:13 PM SEWING TEACHER) CLINICAL INFORMATION: [facility] Comment:ASCUS HPV+ LMP [facility] Comment:POST MENOPAUSAL Previous Pap [facility] Comment:NONE GIVEN Prev. Bx [facility] Comment:NONE GIVEN SOURCE: [facility] Comment:Cervix, Endocervix Pap, specimen adequacy [facility] Comment:SATISFACTORY FOR AMARA LUATION HPV interp [facility] Comment: Negative for intraepithelial lesion or malignancy. Atrophic pattern; predominantly parabasal cells [employer] [facility] Comment: MASON CLARK(ASCP) CT Screening Location: [place] [address] [place] [address] Comment [facility] Comment: EXPLANATORY NOTE: The Pap is [...] High Risk E6/E7 Not Detected NOT DETECTED [facility] [place] Comment: Not Detected High Risk HPV types (16,18,31,33,35,39,45,51,52, 56,58,59,66,68) were not detected. Other HPV types which cause anogenital lesions may be present. The significance of the other types of HPV in malignant processes has not been established. Methodology: Real Time PCR ? Thin prep 07/22/2022 4:13 PM SEWING TEACHER 07/23/2022 2:46 AM SEWING TEACHER Jaida Michelle CLINICAL SYSTEMS EDUCATOR LAB CYTOLOGY ORDERABLES Final Re sult [facility] [address] [place] [address] [facility] [address] [place] [address] * COLONOSCOPY REPORT (05/25/2017) Anatomical Region Laterality Modality Other Provider Scanning GI PROCEDURE ORDERABLES Final Result from Last 3 Months or Most Recently Relevant to Health Maintenance Insurance [employer] OPEN ACCESS Care Teams Envelope Folding Machine Operator Relationship Specialty [place] [id number] [address] [facility] [address] [place] [address] PCP - General Internal Medicine 04/06/17
--- NOTE | 2024-09-13 10:00 | ED_ITS ---
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 She denies any chest pain. No history of shortness of breath. Cough at times is productive and mostly mucoid in nature MD elicited complaint: cough and nasal congestion Pertinent past history: pneumonia Onset (ago): week(s) (2) Consistency: constant Severity: moderate Description of mucous: watery Exacerbating factors: nothing Relieving factors: nothing Associated symptoms: denies other symptoms Related Data Home Medications ?Medication ?Instructions ?Recorded ?Confirmed ?Last Taken ?Type baclofen 10 mg tablet 10 mg PO QHS 08/07/21 09/13/24 09/12/24 History clonazepam 1 mg tablet 1 mg PO QHS 08/07/21 09/13/24 09/12/24 History gabapentin 300 mg capsule 300 mg PO QHS 08/07/21 09/13/24 09/12/24 History oxycodone 10 mg tablet 10 mg PO PRN PRN pain 08/07/21 09/13/24 Unknown History trazodone 50 mg tablet 100 mg PO QHS 08/07/21 09/13/24 09/12/24 History Allergies Allergy/AdvReac Type Severity Reaction Status Date / Time No Known Allergies Allergy Verified 09/13/24 09:00 Review of Systems 2 Review of Systems: All systems reviewed & are unremarkable except as noted in HPI and below ROS unobtainable: Yes unobtainable due to endotracheal tube ENT: Reports as per HPI Cardiovascular: Cardiovascular: Reports no additional cardiovascular complaints Respiratory: Respiratory: Reports as per HPI Gastrointestinal: Gastrointestinal: Reports no additional gastrointestinal complaints Musculoskeletal: Musculoskeletal: Reports no additional musculoskeletal complaints Neurologic: Reports system reviewed and no additional complaints, except as documented Exam 2 Narrative: GENERAL: Well-appearing, well-nourished, and in no acute distress. HEAD: Normocephalic, atraumatic. EYES: PERRLA and EOMI. ENT: Nares clear, no rhinorrhea or epistaxis. Mucous membranes moist. NECK: Supple. CHEST: Clear to auscultation. No respiratory distress. HEART: Regular rate and rhythm. No murmur heard. Normal peripheral pulses. ABDOMEN: Soft, nontender, nondistended, normal active bowel sounds. EXTREMITIES: Normal range of motion. No edema. SKIN: Warm, dry, no rash. NEURO: No focal deficits. Alert and oriented x3. PSYCH: Normal mood and affect. Course Course Emergency Course: Notified patient about her lab work, chest x-ray findings , as these symptoms are more thentwo day ,tamiflu is not indicated , advised her to take e Tylenol or Ibuprofen for pain and fever . Vital Signs Vital signs: Vital Signs Temperature 36.5 C 09/13/24 08:10 Pulse Rate 113 H 09/13/24 08:10 Respiratory Rate 24 H 09/13/24 08:10 Blood Pressure 162/83 H 09/13/24 08:10 Pulse Oximetry 98 09/13/24 08:10 Oxygen Delivery Room Air 09/13/24 08:10 Temperature 36.5 C 09/13/24 08:10 Pulse Rate 111 H 09/13/24 10:13 Respiratory Rate 18 09/13/24 10:13 Blood Pressure 144/86 H 09/13/24 10:13 Pulse Oximetry 93 09/13/24 10:13 Oxygen Delivery Room Air 09/13/24 09:01 MDM - URI/Sore Throat Differential Diagnosis Differential diagnosis: Likely upper respiratory infection, viral infection and bronchitis Medical Records Attestation: I reviewed the patient's medical records. Lab Data Attestation: I reviewed the patient's lab results. 09/13/24 08:17 09/13/24 08:17 Labs: Lab Results 09/13/24 Range/Units 08:17 WBC 4.6 (4.5-10.0) K/mm3 RBC 4.44 (4.2-5.4) M/mm3 Hgb 12.5 (12.0-15.0) g/dL Hct 38.5 (37.0-47.0) % MCV 86.7 (80-100) fl MCH 28.2 (26-34) pg MCHC 32.5 (32-36) g/dl RDW 12.4 (11.5-14.5) % Plt Count 239 (150-375) k/mm3 MPV 9.3 (7.4-10.4) fl Immature Gran % (Auto) 0.2 (0-0.5) % Neut % (Auto) 62.7 (45.5-73.1) % Lymph % (Auto) 13.1 L (18.3-44.2) % Parke % (Auto) 23.4 H (2.6-8.5) % Eos % (Auto) 0.2 (0-4.4) % Baso % (Auto) 0.4 (0.2-1.2) % Lymph # (Auto) 0.60 L (0.9-3.2) K/mm3 Parke # (Auto) 1.1 H (0.1-0.6) K/mm3 Eos # (Auto) 0.0 (0-0.3) K/mm3 Baso # (Auto) 0.0 (0.0-0.1) K/mm3 Abs Immat Gran (auto) 0.01 (0.00-0.031) K/mm3 Absolute Neuts (auto) 2.9 (1.3-6.7) K/mm3 Absolute Nucleated RBC 0.000 (0.0-0.012) K/mm3 Nucleated RBC % 0.0 (0.0-0.2) % PT 14.1 (11.1-14.7) Seconds INR 1.1 APTT 29.5 (22.3-36.8) Seconds Sodium 137 (137-145) mmol/L Potassium 4.0 (3.4-5.0) mmol/L Chloride 96 L (98-107) mmol/L Carbon Dioxide 25 (22-30) mmol/L Anion Gap 16 H (4-12) mmol/L BUN 12 (7-17) mg/dL Creatinine 0.79 (0.7-1.0) mg/dL Estim Creat Clear Calc 65 ml/min Estimated GFR > 60 (59 - ) Glucose 167 H (65-110) mg/dL Calcium 9.4 (8.4-10.2) mg/dL Total Bilirubin 0.4 (0.2-1.3) mg/dL AST 49 H (14-36) U/L ALT 46 H (6-35) U/L Alkaline Phosphatase 65 (38-126) U/L Troponin I < 0.012 (0.000-0.034) ng/mL Total Protein 8.0 (6.3-8.2) g/dL Albumin 4.8 (3.5-5.1) g/dL Influenza A (RT-PCR) Positive A (Negative) Influenza B (RT-PCR) Negative (Negative) RSV (RT-PCR) Negative (Negative) SARS-CoV-2 RNA (RT-PCR) Negative (Negative) Imaging Data Radiologist's impression: ITS Impressions Chest X-Ray 09/13/24 11:25 IMPRESSION: 1. No acute cardiopulmonary disease. ECG Data EKG #1: ECG completion date: 09/13/24 ECG completion time: 08:11 EKG Interpretation: tachycardia (117), sinus rhythm, no ST changes and normal QT Discharge Plan Discharge Clinical Impression: Influenza A Patient Disposition: Home, Self-Care Condition: Stable Instructions: Influenza (ED) Patient Language: Kenyan Prescriptions: No Action trazodone 50 mg tablet 100 mg PO QHS clonazepam 1 mg tablet 1 mg PO QHS baclofen 10 mg tablet 10 mg PO QHS gabapentin 300 mg capsule 300 mg PO QHS oxycodone 10 mg tablet 10 mg PO PRN PRN (Reason: pain) Follow-up/Referrals: Guadalupe,Edwin Conteh MD [Primary Care Provider] - Stand Alone Forms: Work/School Release IP Time of Disposition: 11:38
[2024-09-13 10:13] VITALS: BP 144/86; PULSE 111; RESP 18; O2SAT 93
--- NOTE | 2024-09-13 11:40 | PC.NURSE ---
RN went into pt room to obtain dc vitals. Pt had oral temp 102.4, EDP aware and gave VORB for 650mg acetaminophen and to discahrge pt when medicated.
[2024-09-13] MEDS: ACETAMINOPHEN 325 MG TABLET 650 MG PO (11:46)
[2024-09-13 11:52] VITALS: BP 148/99; PULSE 105; RESP 21; TEMP 39.1; O2SAT 94
== END 2024-09-13 11:57 | disposition home or self-care (01) ==
PROVIDERS: Emergency Provider Family Medicine; PCP Internal Medicine Geriatric Medicine
DX: J10.1 Influenza due to other identified influenza virus with other respiratory manifestations (principal); Z20.822 Contact with and (suspected) exposure to COVID-19; Z87.01 Personal history of pneumonia (recurrent); Z79.899 Other long term (current) drug therapy; R94.31 Abnormal electrocardiogram [ECG] [EKG]; R00.0 Tachycardia, unspecified
CPT/HCPCS: 36415; 71045; 80053; 84484; 85025; 85610; 85730; 87637; 93005; 99284; A9270

== ENCOUNTER 2024-12-24 08:31 | Outpatient (CLI) | payer MEDICARE, SELFPAY ==
--- NOTE | ~2024-12-24 | MM_ITS ---
EXAMINATION: MM screening amador BI w cristino HISTORY: Screening TECHNIQUE: Craniocaudal and mediolateral oblique 3-D tomosynthesis images were obtained and synthetic 2-D images were generated. CAD analysis was submitted and interpreted. COMPARISON: Comparison to multiple prior studies sequentially, with oldest reviewed study dated 05/11. BREAST PARENCHYMAL COMPOSITION: Not dense: There are scattered areas of fibroglandular density. FINDINGS: There is a focal asymmetry which is new in the central aspect of the right breast, on CC vi ew only. Left breast is stable without evidence for malignancy. IMPRESSION: 1. New focal right breast asymmetry located centrally in the right breast on CC view. 2. Additional mammographic views and possible breast ultrasound are recommended. BI-RADS Category 0: Incomplete: Needs additional imaging evaluation. Reviewed, dictated and finalized at location [] IMPRESSION: 1. New focal right breast asymmetry located centrally in the right breast on CC view. 2. Additional mammographic views and possible breast ultrasound are recommended . BI-RADS Category 0: Incomplete: Needs additional imaging evaluation.
--- OUTSIDE RECORDS SUMMARY | 2024-12-24 08:35 | XMS_ITS | Continuity of Care Document ---
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 Name Role Phone Erika MS, OTR/L, Monserrat KUNZ Unavailable Unavailable Procedures Procedure Date Progress Note Therapeutic Exercise Therapeutic Activities Neuromuscular Re-Ed Manual Therapy Hot or Cold Pack Therapeutic Exercise Therapeutic Activities Neuromuscular Re-Ed Manual Therapy Hot or Cold Pack Therapeutic Exercise Therapeutic Activities Neuromuscular Re-Ed Manual Therapy Hot or Cold Pack Therapeutic Exercise Therapeutic Activities Neuromuscular Re-Ed Manual Therapy Hot or Cold Pack Therapeutic Exercise Therapeutic Activities Neuromuscular Re-Ed Manual Therapy Hot or Cold Pack Therapeutic Exercise Therapeutic Activities Neuromuscular Re-Ed Manual Therapy Hot or Cold Pack Therapeutic Exercise Therapeutic Activities Neuromuscular Re-Ed Manual Therapy Hot or Cold Pack Therapeutic Exercise Therapeutic Activities Neuromuscular Re-Ed Manual Therapy Hot or Cold Pack Therapeutic Exercise Therapeutic Activities Neuromuscular Re-Ed Manual Therapy Hot or Cold Pack Therapeutic Exercise Therapeutic Activities Neuromuscular Re-Ed Manual Therapy Hot or Cold Pack Therapeutic Exercise Therapeutic Activities Neuromuscular Re-Ed Manual Therapy Hot or Cold Pack Therapeutic Exercise Therapeutic Activities Neuromuscular Re-Ed Hot or Cold Pack Therapeutic Exercise Therapeutic Activities Neuromuscular Re-Ed Hot or Cold Pack Therapeutic Exercise Therapeutic Activities Neuromuscular Re-Ed Manual Therapy Hot or Cold Pack Therapeutic Exercise Therapeutic Activities Neuromuscular Re-Ed Manual Therapy Hot or Cold Pack Therapeutic Exercise Therapeutic Activities Neuromuscular Re-Ed Manual Therapy Hot or Cold Pack Therapeutic Exercise Therapeutic Activities Neuromuscular Re-Ed Manual Therapy Hot or Cold Pack Therapeutic Exercise Therapeutic Activities Neuromuscular Re-Ed Manual Therapy Hot or Cold Pack Therapeutic Exercise Therapeutic Activities Neuromuscular Re-Ed Manual Therapy Hot or Cold Pack Therapeutic Exercise Therapeutic Activities Neuromuscular Re-Ed Manual Therapy Hot or Cold Pack Therapeutic Exercise Therapeutic Activities Neuromuscular Re-Ed Manual Therapy Hot or Cold Pack Therapeutic Exercise Therapeutic Activities Neuromuscular Re-Ed Manual Therapy Hot or Cold Pack Therapeutic Exercise Therapeutic Activities Neuromuscular Re-Ed Manual Therapy Hot or Cold Pack Therapeutic Exercise Therapeutic Activities Neuromuscular Re-Ed Manual Therapy Hot or Cold Pack Therapeutic Exercise Therapeutic Activities Neuromuscular Re-Ed Manual Therapy Hot or Cold Pack Therapeutic Exercise Therapeutic Activities Neuromuscular Re-Ed Manual Therapy Hot or Cold Pack Therapeutic Exercise Therapeutic Activities Neuromuscular Re-Ed Manual Therapy Hot or Cold Pack Therapeutic Exercise Therapeutic Activities Neuromuscular Re-Ed Manual Therapy Hot or Cold Pack Therapeutic Exercise Therapeutic Activities Neuromuscular Re-Ed Manual Therapy Hot or Cold Pack Therapeutic Exercise Therapeutic Activities Neuromuscular Re-Ed Manual Therapy Hot or Cold Pack Therapeutic Exercise Therapeutic Activities Neuromuscular Re-Ed Manual Therapy Hot or Cold Pack Therapeutic Exercise Therapeutic Activities Neuromuscular Re-Ed Manual Therapy Hot or Cold Pack Therapeutic Exercise Therapeutic Activities Neuromuscular Re-Ed Manual Therapy Hot or Cold Pack Progress Note Therapeutic Exercise Therapeutic Activities Neuromuscular Re-Ed Manual Therapy Hot or Cold Pack Therapeutic Exercise Therapeutic Activities Neuromuscular Re-Ed Manual Therapy Hot or Cold Pack Therapeutic Exercise Therapeutic Activities Neuromuscular Re-Ed Manual Therapy Hot or Cold Pack Therapeutic Exercise Therapeutic Activities Neuromuscular Re-Ed Manual Therapy Hot or Cold Pack Therapeutic Exercise Therapeutic Activities Neuromuscular Re-Ed Manual Therapy Hot or Cold Pack Therapeutic Activities Neuromuscular Re-Ed Manual Therapy Hot or Cold Pack Theraputty Therapeutic Exercise Therapeutic Activities Neuromuscular Re-Ed Manual Therapy Hot or Cold Pack Therapeutic Exercise Therapeutic Activities Neuromuscular Re-Ed Manual Therapy Hot or Cold Pack Electrical Stimulation Therapeutic Activities Neuromuscular Re-Ed Manual Therapy Hot or Cold Pack Electrical Stimulation Therapeutic Exercise Therapeutic Activities Neuromuscular Re-Ed Manual Therapy Hot or Cold Pack Electrical Stimulation Therapeutic Exercise Therapeutic Activities Neuromuscular Re-Ed Manual Therapy Hot or Cold Pack Electrical Stimulation Therapeutic Activities Neuromuscular Re-Ed Manual Therapy Hot or Cold Pack OT Evaluation Moderate Complexity Therapeutic Exercise Manual Therapy Hot or Cold Pack Wrist Widget Therapeutic Exercise Therapeutic Activities Neuromuscular Re-Ed Manual Therapy Hot or Cold Pack Progress Note Therapeutic Exercise Therapeutic Activities Neuromuscular Re-Ed Manual Therapy Hot or Cold Pack Therapeutic Exercise Therapeutic Activities Neuromuscular Re-Ed Manual Therapy Hot or Cold Pack Therapeutic Exercise Therapeutic Activities Neuromuscular Re-Ed Manual Therapy Hot or Cold Pack Therapeutic Exercise Therapeutic Activities Neuromuscular Re-Ed Manual Therapy Hot or Cold Pack Therapeutic Exercise Therapeutic Activities Neuromuscular Re-Ed Manual Therapy Hot or Cold Pack Progress Note Therapeutic Exercise Therapeutic Activities Neuromuscular Re-Ed Manual Therapy Hot or Cold Pack Therapeutic Exercise Therapeutic Activities Neuromuscular Re-Ed Manual Therapy Hot or Cold Pack Therapeutic Exercise Therapeutic Activities Neuromuscular Re-Ed Manual Therapy Hot or Cold Pack Therapeutic Exercise Therapeutic Activities Neuromuscular Re-Ed Manual Therapy Hot or Cold Pack Therapeutic Exercise Therapeutic Activities Neuromuscular Re-Ed Manual Therapy Hot or Cold Pack Therapeutic Exercise Therapeutic Activities Neuromuscular Re-Ed Manual Therapy Hot or Cold Pack Progress Note Therapeutic Exercise Therapeutic Activities Neuromuscular Re-Ed Manual Therapy Hot or Cold Pack Therapeutic Exercise Therapeutic Activities Neuromuscular Re-Ed Manual Therapy Hot or Cold Pack Ultrasound Therapeutic Exercise Therapeutic Activities Neuromuscular Re-Ed Manual Therapy Hot or Cold Pack Ultrasound Therapeutic Exercise Therapeutic Activities Neuromuscular Re-Ed Manual Therapy Hot or Cold Pack Therapeutic Exercise THERAPEUTIC ACTIVITIES Neuromuscular Re-Ed MANUAL THERAPY Hot or Cold Pack Therapeutic Exercise THERAPEUTIC ACTIVITIES Neuromuscular Re-Ed MANUAL THERAPY Therapeutic Exercise THERAPEUTIC ACTIVITIES Neuromuscular Re-Ed MANUAL THERAPY Therapeutic Exercise THERAPEUTIC ACTIVITIES Neuromuscular Re-Ed MANUAL THERAPY Therapeutic Exercise THERAPEUTIC ACTIVITIES Neuromuscular Re-Ed MANUAL THERAPY Hot or Cold Pack OT Evaluation Low Complexity Therapeutic Exercise THERAPEUTIC ACTIVITIES Neuromuscular Re-Ed MANUAL THERAPY Hot or Cold Pack Advance Directives Directive Yes / No Effective Date File Name No Information Encounters Encounter Description Practice Location Reason(s) For Visit Diagnoses Date Provider Providers Copied on Encounter [facility] [place], [address] [address], [place], [place], [id number], [place] tel:[phone] [place] No Information 8 Hachuck German. [address] [facility], [address], [place], [place], [facility], [place]. tel:[phone], [place], [place], [id number], [place] tel:[phone] [place] Stiffness of left wrist, not elsewhere classifiedEffus ion, left wristPain in left wristOth symptoms and signs involving the musculoskeletal systemOther specified health statusOther specified sprain of left wrist, initial encounter 8 Erika Mejianifer. [address] [facility], [address], [place], [place], [facility], [place]. tel:[phone] Referring Provider: Negrito Quintanilla, [address], [place], [address]. tel:[phone] [facility] [address] [place], [place] [address], [place], [place], [id number], [place] tel:[phone] [place] Stiffness of left wrist, not elsewhere classifiedEffus ion, left wristPain in left wristOth symptoms and signs involving the musculoskeletal systemOther specified health statusOther specified sprain of left wrist, initial encounter 8 Felipechuck Mejianifer. [address] [facility], [address], [place], [facility], [place]. tel:[phone] Referring Provider: Negrito Quintanilla, [address], [place], [address]. tel:[phone] [facility] [address] [facility] [address], [place], [place], [id number], [place] tel:[phone] [place] Stiffness of left wrist, not elsewhere classifiedEffus ion, left wristPain in left wristOth symptoms and signs involving the musculoskeletal systemOther specified health statusOther specified sprain of left wrist, initial encounter 8 Erika Mejianifer. [address] [facility], [address], [place], [facility], [place]. tel:[phone] Referring Provider: Negrito Quintanilla, [address], [place], [address]. tel:[phone] [facility], [address], [place], [place], [id number], [place] tel:[phone] [place] Stiffness of left wrist, not elsewhere classifiedEffus ion, left wristPain in left wristOth symptoms and signs involving the musculoskeletal systemOther specified health statusOther specified sprain of left wrist, initial encounter Apr-1 3-201 8 Erika German. [address] [facility], [address], [place], [address], [place]. tel:[phone] Referring Provider: Negrito Quintanilla, [address], [place], [address]. tel:[phone] [facility] [address], [place], [place], [id number], [place] tel:[phone] [place] Stiffness of left wrist, not elsewhere classifiedEffus ion, left wristPain in left wristOth symptoms and signs involving the musculoskeletal systemOther specified health statusOther specified sprain of left wrist, initial encounter Apr-0 9-201 8 Erika German. [address] [facility], [address], [place], [address], [place]. tel:[phone] Referring Provider: Negrito Quintanilla, [address], [place], [address]. tel:[phone] [facility] [address], [place], [place], [id number], [place] tel:[phone] [place] Stiffness of left wrist, not elsewhere classifiedEffus ion, left wristPain in left wristOth symptoms and signs involving the musculoskeletal systemOther specified health statusOther specified sprain of left wrist, initial encounter Apr-0 6-201 8 Erika German. [address] [facility], [address], [place], [address], [place]. tel:[phone] Referring Provider: Negrito Quintanilla, [address], [place], [address]. tel:[phone] [facility] [address], [place], [place], [id number], [place] tel:[phone] [place] Stiffness of left wrist, not elsewhere classifiedEffus ion, left wristPain in left wristOth symptoms and signs involving the musculoskeletal systemOther specified health statusOther specified sprain of left wrist, initial encounter 8 Hauschild Monserrat. [address] [facility], [address], [place], [address], [place]. tel:[phone] Referring Provider: Negrito Quintanilla, [address], [place], [address]. tel:[phone], [place], [place], [id number], [place] tel:[phone] [place] Stiffness of left wrist, not elsewhere classifiedEffus ion, left wristPain in left wristOth symptoms and signs involving the musculoskeletal systemOther specified health statusOther specified sprain of left wrist, initial encounter 2 8 Hauschild Monserrat. [address] [facility], [address], [place], [address], [place]. tel:[phone] Referring Provider: Negrito Quintanilla, [address], [place], [address]. tel:[phone], [place], [place], [id number], [place] tel:[phone] [place] Stiffness of left wrist, not elsewhere classifiedEffus ion, left wristPain in left wristOth symptoms and signs involving the musculoskeletal systemOther specified health statusOther specified sprain of left wrist, initial encounter 0- 8 Hauschild Monserrat. [address] [facility], [address], [place], [address], [place]. tel:[phone] Referring Provider: Negrito Quintanilla, [address], [place], [address]. tel:[phone], [place], [place], [id number], [place] tel:[phone] [place] Stiffness of left wrist, not elsewhere classifiedEffus ion, left wristPain in left wristOth symptoms and signs involving the musculoskeletal systemOther specified health statusOther specified sprain of left wrist, initial encounter 8-201 8 Erika Bergmanfer. [address] [place] [address], [address], [place], [place], [facility], . tel:[phone] Referring Provider: Negrito Quintanilla, [address], [place], [address]. tel:[phone], [place], [place], [id number], [place] tel:[phone] [place] Stiffness of left wrist, not elsewhere classifiedEffus ion, left wristPain in left wristOth symptoms and signs involving the musculoskeletal systemOther specified health statusOther specified sprain of left wrist, initial encounter 6-201 8 Erika German. [address] [facility], [address], [place], [facility], [place]. tel:[phone] Referring Provider: Negrito Quintanilla, [address], [place], [address]. tel:[phone], [place], [place], [id number], [place] tel:[phone] [place] Stiffness of left wrist, not elsewhere classifiedEffus ion, left wristPain in left wristOth symptoms and signs involving the musculoskeletal systemOther specified health statusOther specified sprain of left wrist, initial encounter 3-201 8 Erika German. [address] [facility], [address], [place], [facility], [place]. tel:[phone] Referring Provider: Negrito Quintanilla, [address], [place], [address]. tel:[phone], [place], [place], [id number], [place] tel:[phone] [place] Stiffness of left wrist, not elsewhere classifiedEffus ion, left wristPain in left wristOth symptoms and signs involving the musculoskeletal systemOther specified health statusOther specified sprain of left wrist, initial encounter 1 9-201 8 Hauschild Monserrat. [address] [place] [address], [address], [place], [facility], . tel:[phone] Referring Provider: Negrito Quintanilla, [address], [place], [address]. tel:[phone] [address], [place], [place], [id number], tel:[phone] [place] No Information Mar-1 6-201 8 Hauschild Monserrat. [address] [place] [address], [address], [place], [facility], [place]. tel:[phone] Referring Provider: Negrito Quintanilla, [address], [place], [address]. tel:[phone] [address], [place], [place], [id number], [place] tel:[phone] [place] No Information Mar-0 7-201 8 Hauschild Monserrat. [address] [place] [address], [address], [place], [facility], [place]. tel:[phone] Referring Provider: Negrito Quintanilla, [address], [place], [address]. tel:[phone] [address], [place], [place], [id number], tel:[phone] [place] No Information Mar-0 5-201 8 Hauschild Monserrat. [address] [place] [address], [address], [place], [facility], [place]. tel:[phone] Referring Provider: Negrito Quintanilla, [address], [place], [address]. tel:[phone] [facility], [address] [place], [place] [address], [place], [place], [id number], tel:[phone] [place] No Information Mar-0 2-201 8 Hauschild Monserrat. [address] [place] [address], [address], [place], [facility], [place]. tel:[phone] Referring Provider: Negrito Quintanilla, [address], [place], [address]. tel:[phone] [address], [place], [place], [id number], tel:[phone] [place] No Information Feb-2 8-201 8 Hauschild Monserrat. [address] [place] [address], [address], [place], [facility], . tel:[phone] Referring Provider: Negrito Quintanilla, [address], [place], [address]. tel:[phone] [address] [facility], [place], [place], [id number], tel:[phone] [place] No Information Feb-2 6-201 8 Hauschild Monserrat. [address] [place] [address], [address], [facility], . tel:[phone] Referring Provider: Negrito Quintanilla, [address], [place], [address]. tel:[phone] [address], [place], [place], [id number], tel:[phone] [place] No Information b-2 3-201 8 Hauschild Monserrat. [address] [place] [address], [address], [facility], . tel:[phone] Referring Provider: Negrito Quintanilla, [address], [place], [address]. tel:[phone] [address], [id number], tel:[phone] [place] No Information Feb-2 1-201 8 Hauschild Monserrat. [address] [place] [address], [address], [facility], . tel:[phone] Referring Provider: Negrito Quintanilla, [address], [place], [address]. tel:[phone], [place], [place], [id number], tel:[phone] [place] No Information 8 Hauschild Monserrat. [address] [place] [address], [address], [facility], . tel:[phone] Referring Provider: Negrito Quintanilla, [address], [place], [address]. tel:[phone] [address], [place], [place], [address], tel:[phone] [place] No Information 8 Hauschild Monserrat. [address] [place] [address], [facility] [address], [facility], . tel:[phone] Referring Provider: Negrito Quintanilla, [address], [place], [address]. tel:[phone] [address], [place], [place], [address], tel:[phone] [place] No Information 8 Hauschild Monserrat. [address] [place] [address], [address], [facility], . tel:[phone] Referring Provider: Negrito Quintanilla, [address], [place], [address]. tel:[phone] [address], [place], [place], [id number], tel:[phone] [place] No Information 8 Hauschild Monserrat. [address] [place] [address], [address], [facility], . tel:[phone] Referring Provider: Negrito Quintanilla, [address], [place], [address]. tel:[phone], [place], [place], [address], tel:[phone] [place] No Information 8 Erika German. [address] [place] [address], [address], [place], [facility], . tel:[phone] Referring Provider: Negrito Quintanilla, [address], [place], [address]. tel:[phone] [facility] [address] [facility], [place], [place], [id number], tel:[phone] [place] No Information 8 Erika German. [address] [place] [address], [address], [place], [facility], . tel:[phone] Referring Provider: Negrito Quintanilla, [address], [place], [address]. tel:[phone] [facility] [address] [facility] [address], [place], [place], [id number], tel:[phone] [place] No Information 8 Erika German. [address] [place] [address], [address], [facility], . tel:[phone] Referring Provider: Negrito Quintanilla, [address], [place], [address]. tel:[phone] [facility] [address] [facility], [place], [place], [id number], tel:[phone] [place] No Information 8 Erika German. [address] [place] [address], [address], [place], [facility], . tel:[phone] Referring Provider: Negrito Quintanilla, [address], [place], [address]. tel:[phone] [facility] [address], [place], [place], [id number], tel:[phone] [place] No Information 8 Erika German. [address] [facility], [address], [place], [facility], [place]. tel:[phone] Referring Provider: Negrito Quintanilla, [address], [place], [address]. tel:[phone] [address], [place], [place], [id number], [place] tel:[phone] [place] No Information 8 Erika German. [address] [place] [address], [address], [place], [address], [place]. tel:[phone] Referring Provider: Negrito Quintanilla, [address], [place], [address]. tel:[phone] [address], [place], [place], [id number], [place] tel:[phone] [place] No Information 8 Erika German. [address] [place] [address], [address], [place], [address], [place]. tel:[phone] Referring Provider: Negrito Quintanilla, [address], [place], [address]. tel:[phone] [address], [place], [place], [id number], [place] tel:[phone] [place] No Information 8 Erika German. [address] [place] [address], [address], [place], [address], [place]. tel:[phone] Referring Provider: Negrito Quintanilla, [address], [place], [address]. tel:[phone] [address], [place], [id number], [place] tel:[phone] [place] No Information 8 Erika German. [address] [place] [address], [address], [place], [address], [place]. tel:[phone] Referring Provider: Negrito Quintanilla, [address], [place], [address]. tel:[phone] [address], [place], [place], [id number], tel:[phone] [place] No Information 0-201 8 Erika German. [address] [place] [address], [address], [place], [facility], . tel:[phone] Referring Provider: Negrito Quintanilla, [address], [place], [address]. tel:[phone] [address], [place], [place], [id number], tel:[phone] [id number] [place] No Information 8-201 8 Erika German. [address] [place] [address], [address], [place], [place], [facility], . tel:[phone] Referring Provider: Negrito Quintanilla, [address], [place], [address]. tel:[phone] [address], [place], [place], [address], tel:[phone] [place] No Information 5-201 8 [place], . Referring Provider: Negrito Quintanilla, [address], [place], [address]. tel:[phone], [place], [place], [id number], [place] tel:[phone] [place] No Information 3-201 8 Erika German. [address] [facility], [address], [place], [place], [facility], . tel:[phone] Referring Provider: Negrito Quintanilla, [address], [place], [address]. tel:[phone], [place], [place], [id number], tel:[phone] [place] No Information 8 Hauschild Monserrat. [address] [place] [address], [address], [place], [facility], . tel:[phone] Referring Provider: Negrito Quintanilla, [address], [place], [address]. tel:[phone] [address], [place], [place], [address], tel:[phone] [place] No Information 7 Hauschild Monserrat. [address] [place] [address], [address], [place], [facility], . tel:[phone] Referring Provider: Negrito Quintanilla, [address], [place], [address]. tel:[phone], [address], tel:[phone] [place] No Information 7 Hauschild Monserrat. [address] [place] [address], [address], [place], [facility], . tel:[phone] Referring Provider: Negrito Quintanilla, [address], [place], [address]. tel:[phone], [id number], tel:[phone] [place] No Information 7 Hauschild Monserrat. [address] [place] [address], [address], [place], [facility], . tel:[phone] Referring Provider: Negrito Quintanilla, [address], [place], [address]. tel:[phone] [address], [place], [id number], tel:[phone] [facility] symptoms and signs involving the musculoskeletal systemOther specified health statusOther specified sprain of left wrist, initial encounter Jul- 2 7 Erika German. [address] [place] [address], [address], [place], [facility], . tel:[phone] Referring Provider: Negrito Quintanilla, [address], [place], [address]. tel:[phone], [place], [place], [address], tel:[phone] [place] No Information 0201 7 Erika German. [address] [place] [address], [address], [place], [facility], . tel:[phone] Referring Provider: Negrito Quintanilla, [address], [place], [address]. tel:[phone] [address], [place], [place], [address], tel:[phone] [place] No Information 8 7 Erika German. [address] [place] [address], [address], [place], [address], [place]. tel:[phone] Referring Provider: Negrito Quintanilla, [address], [place], [address]. tel:[phone], [place], [place], [address], tel:[phone] [place] No Information 7 Antonio Fischer. [address] [place] [address], [address], [place], [address], [place]. tel:[phone] Referring Provider: Negrito Quintanilla, [address], [place], [address]. tel:[phone] [facility], [address] [place] [address] [address], [place], [place], [address], tel:[phone] [place] No Information 6201 7 Erika Germna. [address] [place] [address], [address], [place], [address], [place]. tel:[phone], [place], [place], [address], tel:[phone] [place] No Information 0 7 Erika German. [address] [facility], [address], [place], [address], . tel:[phone], [place], [place], [address], tel:[phone] [place] No Information 7 [id number]|2024-12-24 08:35:00|2024-12-24 08:35:00|XMS_ITS|STEPANG SEAN|External Medical Summaries|[id number]|" Data Portability Created on: December 24, 2024 Monserrat Patel .[id number] : 1960 Sex: Female Author Organization [facility] Address [address] [place] [id number] Assessment No assessment recorded. Plan of Treatment Reminders Order Date Submit Date Provider Last Modified By Organization Details Last Modified Time Details Appointments None recorded. Lab pap, IG + HPV, cervical 2018 019 ANGIE FRANK, [address] [place] [address], [place] [address], [place], [address], 9 06:09:11 pap, IG + HPV, cervical 2014 015 ANGIE LABCODELON, [address] [place] [address], [address], [place], [address], 5 07:30:26 Referral gastroent erologist referral 2014 015 HOLLY Bob MD, [address] [place], [address], 5 10:15:39 general surgeon referral 2014 016 [email or web address] Jamil Kelly MD, [address] [facility], [address], [place], [address], 6 12:43:07 Procedures None recorded. Surgeries None recorded. Imaging MAMMO, screening , bilateral 2018 019 [facility], [address], [address], [place], [address], 9 17:41:35 mammogram , screening [address] [facility], [address], [address], [place], [address], 5 09:13:15 Medication Orders estradiol 10 mcg vaginal tablet 2018 019 [facility], [address] [place] [address], [address], 9 17:42:18 multivita min tablet 2018 019 [facility] [address] [facility], [address] [place], [address], 9 17:41:30 Calcium with Vitamin D 600 mg-10 mcg (400 unit) tablet 2018 019 [facility] In [facility], [facility] [place], [address], 9 17:41:31 Patient TargetsNo targets recorded. Patient Instructions Encounter Date Encounter Id Patient Instructions Last Modified By Organization Details Last Modified Time 05/31/2015 [id number] hemorrhoids: care instructions [email or web address] Not available 06/01/2015 09:40:27 09/23/2018 [id number] kekaran exercises radha Not availabl e 09/23/2018 17:40:25 mammogram: about this test radha Not available 09/23/2018 17:41:35 Reason for Referral Referring Physician: Eric price, [employer], Encounter Date: 05/31/2015 General Surgeon Referral for Hemorrhoids Referring Physician: Eric Sloan [employer], Encounter Date: 05/31/2015 Results Created Date Observation Date Name Description Value Unit Range Abnormal Flag Note LastModifiedBy Organization Detail LastModifiedTime 06/01/20 15 06/04/2015 pap, IG + HPV, cervi giuliana HPV aptima NEGATI VE negati ve THIS TEST DETEC TS FOURT EEN HIGH- RISK HPV TYPES (16/1 8/31/ 33/35 /39/4 5/ 51/52 /56/5 8/59/ 66/68 ) WITHO UT DIFFE RENTI ATION . Not Available [facility] ([facility]) [address], [place], [address], 06/05/2015 07:30:26 06/01/20 15 06/05/2015 pap, IG + HPV, cervi giuliana diagnosis: COMMEN T NEGAT ALESIA FOR INTRA EPITH ELIAL DAINA N AND JAN LAI . CELLU LAR RAMOS ES ASSOC IATED WITH ATROP HY ARE PRESE NT. Not Available [facility] ([facility]) [address], [place], [address], 06/05/2015 07:30:26 06/01/2006/05/2015 pap, IG + HPV, cervi giuliana specimen adequacy: COMMEN T SATIS FACTO RY FOR EVALU ATION . ENDOC ERVIC AL COMPO NENT MAY NOT BE DISTI NGUIS HED IN CASES OF ATROP HY. Not Available [facility] ([facility]) [address], [place], [address], 06/05/2015 07:30:26 06/01/2006/05/2015 pap, IG + HPV, cervi giuliana performed by: TOÑO GONZALES (ASCP ) Not Available [facility] ([facility]) [address] [place], [address], 06/05/2015 07:30:26 06/01/2006/05/2015 pap, IG + HPV, cervi giuliana . . Not Available [facility] ([facility]) [address] [place], [address], 06/05/2015 07:30:26 06/01/2006/05/2015 pap, IG + HPV, cervi giuliana note: [...] TS DO OCCUR . Not Available [facility] ([facility]) [address] [place], [address], 06/05/2015 07:30:26 06/01/2006/05/2015 pap, IG + HPV, cervi giuliana test methodology: SEEMA Horan THIS LIQUI D BASED THINP REP(R ) PAP TEST WAS SCREE KEVIN WITH THE USE OF AN IMAGE GUIDE D SYSTTashia M. Not Available [facility] ([facility]) [address] [place], [address], 06/05/2015 07:30:26 09/23/19 19 09/27/2018 pap, IG + HPV, cervi guiliana diagnosis: Seema horan NEGAT ALESIA FOR INTRA EPITH ELIAL LESIO N OR MALIG JOELLE . CELLU LAR RAMOS ES ASSOC IATED WITH ATROP HY ARE PRESE NT. Not Available [facility] ([facility]) [address] [place], [address], 09/28/2018 06:09:11 09/23/1909/27/2018 pap, IG + HPV, cervi giuliana specimen adequacy: Seema horan Satis facto ry for evalu ation . Endoc ervic al compo nent may not be disti nguis hed in cases of atrop hy. Not Available [facility] ([facility]) [address] [place], [address], 09/28/2018 06:09:11 09/23/1909/27/2018 pap, IG + HPV, cervi giuliana clinician provided ICD10: Seema horan Z01.4 19 Not Available [facility] ([facility]) [address] [place], [address], 09/28/2018 06:09:11 09/23/19 19 09/27/2018 pap, IG + HPV, cervi giuliana performed by: Toño Zuluaga (ASCP ) Not Available [facility] ([facility]) [address] [place], [address], 09/28/2018 06:09:11 09/23/19 19 09/27/2018 pap, IG + HPV, cervi giuliana . . Not Available [facility] ([facility]) [address] [place], [address], 09/28/2018 06:09:11 09/23/1909/27/2018 pap, IG + HPV, [...] ts do occur . Not Available [facility] ([facility]) [address], [place], [address], 09/28/2018 06:09:11 09/23/19 19 09/27/2018 pap, IG + HPV, cervi giuliana test methodology: Commen t This liqui d based ThinP rep(R ) pap test was valentina brown with the use of an image guide kamilah hooker. Not Available [facility] ([facility]) [address], [place], [address], 09/28/2018 06:09:11 09/23/19 19 09/28/2018 pap, IG + HPV, cervi giuliana HPV aptima Negati ve negati ve This test detec ts fourt een high- risk HPV types (16/1 8/31/ 33/35 /39/4 5/ 51/52 /56/5 8/59/ 66/68 ) witho ut diffe renti ation . Not Available [facility] ([facility]) [address], [place], [address], 09/28/2018 06:09:11 06/06/20 15 06/06/2015 dexa PT NAME: DAVID SELBY : 1959 PT SEX/AG E: F/56 PT ACCT NUMBER : [id number] PT MR#: [id number] ROOM/B ED: PT STATUS : REG CLI DATE OF EXAMIN ATION: [facility]ALLIE: ERIC ALBERT MGerson ATTEND [facility] PHYSIC SALLIE: ERIC ALBERT , M.D. DICTAT ING PHYSIC SALLIE: Tj CRUZ M.D. [id number] 6.001A DC 17:56: 00 41.007 2MAM ([facility]) : DIGITA L MAMM SCREEN -DVIINA INDICA TION: Screen ing. TECHNI QUE: Screen [...] [place] [address] [place] [address] [facility] (Imaging) [address], [place], [address], 09/23/2018 17:44:27 06/28/20 15 06/27/2015 imagi ng/di agnos tic resul t No observ ation record ed. [facility] Not Available 09/23 17:44:27 Result Notes None recorded. Problems Name Problem SNOMED Code Status Onset Date Resolution Date Notes Provider Name and Address Organization Details Recorded Time Hemorrhoids 55335475 Active Eric Nathalia evangelista, [facility] 5 19:35:23 Problem Notes None recorded. Procedures Surgical History Date Name Laterality Status Provider Name and Address Organization Details Recorded Time 6 partial carpectomy completed Adalgisa Sanders MA [facility] 09/23/2018 17:14:41 6 Orthopedic Surgery completed Adalgisa Sanders MA [facility] 09/23/2018 17:15:53 5 Most Recent Mammogram completed Adalgisa Sanders MA [facility] 09/23/2018 17:13:28 5 Date of Last Pap Smear completed Adalgisa Sanders MA [facility] 09/23/2018 17:12:55 1 Orthopedic Surgery completed Nan Simpson MA [facility] 05/31/2015 18:04:19 1 Myomectomy completed Nan Simpson MA [facility] 05/31/2015 18:04:19 1 Orthopedic Surgery completed Adalgisa Sanders MA [facility] 09/23/2018 17:15:21 Imaging Results Imaging Date Name Status LastModified by Organiz ation Details LastModified Time 06/06/2015 dexa completed [facility] (Imaging) [address] [facility] [address] [facility], [place], [address], 09/23/2018 17:44:27 06/27/2015 imaging/diag nostic result completed [facility] Information not available 09/23/2018 17:44:27 Procedure Notes [...] Available Not Available Not Avai lable Fluvirin 8137-6008 45 mcg (15 mcg x 3)/0.5 mL intramuscula r suspension 09/23 completed Not Available Not Available Not Available Vitals Date Recorded Body height Body mass index (BMI) Body weight Systolic blood pressure Diastolic blood pressure Provider Name and Address Organization Details Last Updated DateTime 09/23/2018 162.56 cm 31.4 kg/m2 24748.4 g 138 mm[Hg] 84 mm[Hg] Adalgisa Sanders MA [facility] SIF 9 17:20:33 Date Recorded Body height Body mass index (BMI) Body weight Systolic blood pressure Diastolic blood pressure Provider Name and Address Organization Details Last Updated DateTime 05/31/2015 162.56 cm 29 kg/m2 67665.11 053 g 154 mm[Hg] 90 mm[Hg] Nan Simpson MA [facility] 5 18:14:33 Social History Question Answer Notes LastModified by Organizat ion Details LastModified Time Tobacco Smoking Status Never Smoker Nan Simpson MA [facility], [facility] 05/31/2015 18:08:00 Do You Have An Advance Directive? No Information not available 05/31/2015 Is Blood Transfusion Acceptable In An Emergency? Yes Information not available 05/31/2015 What Is Your Level Of Caffeine Consumption? Moderate Information not available 05/31/2015 How Much Tobacco Do You Chew? None Information not available 05/31/2015 What Type Of Diet Are You Following? REGULAR Information not available 05/31/2015 Which Illicit Or Recreational Drugs Have You Used? None Information not available 05/31/2015 Education 2 Year College Information not available 05/31/2015 Live Alone Or With Others? With Others Information not available 05/31/2015 What Was The Date Of Your Most Recent Tobacco Screening? 09/23/2018 Information not available 03/03/2019 How Many Children Do You Have? 1 Information not available 05/31/2015 Performs Monthly Self-breast Exam? Yes Information no t available 05/31/2015 What Is Your Relationship Status? Information not available 05/31/2015 Seat Belts Used Routinely Yes Information not available 05/31/2015 Are You Sexually Active? No Information not available 05/31/2015 General Stress Level High Information not available 05/31/2015 Do You Use Sunscreen Routinely? Yes Information not available 05/31/2015 Sex: Unknown Functional Status Question Answer Note LastModified by Organizat ion Details LastModified Time What is your level of alcohol consumption? Occasional Information not available 05/31/2015 Are you currently employed? 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 Heavy Information [...] SNOMED-CT Code Diagnosis ICD10 Code Diagnosis Note [id number] MD Nancy Rizvi ([employer]) [address] [place] [address] 05/31/2015 15:40:55 05/31/2015 19:38:14 Gynecologic examination 87426771 Z01.419 Screening mammography 24 622920 Z12.31 Hemorrhoids 19224202 K64 .9 [id number] MD Nancy Rizvi ([employer]) [address] [place] [address] 09/23/2018 15:53:37 09/24/2018 12:57:27 Gynecologic examination 97226058 Z01.419 Screening mammography 24 692221 Z12.31 Cystocele without uterine prolapse 42178611 N81.10 Health Concerns Section Related Observation LastModified by Organization Detai ls LastModified Time None Recorded Concern Status LastModified by Organization Details LastModified Time None Recorded Advance Directives Directive N: Payers Encounter Date Sequence Insurance Name Policy Number Policy Harden Covered Member ID Harden Member ID Guarantor Name 05/31/2015 1 [facility] (MEDICAID HMO) [id number] Monserrat Ptael [id number] Monserrat Patel 09/23/2018 1 [facility] (MEDICAID HMO) [id number] Monserrat Patel [id number] Monserrat Patel Notes Date Note Type Note Provider Name and Address Organization Details Recorded Time 09/23/2018 text/html Annual GYNReport ed bypatient.Urinary symptoms:No hematuria Vulva:No genital lesion Vagina:Normal vaginal discharge Breast:No breast pain; No breast lump; No nipple discharge Preventive measures:Encourage self breast examination; Encourage regular exercise; Encourage no tobacco use; Encourage regular mammograms starting age [age]yo [id number] here for [employer]. Patient reports she thinks she has a possible prolapse. Eric Sloan [place], [place] - [facility] 09/24/2018 12:22:32 OBGyn Episode Ob Episode Information Episode Created Date Number of Fetuses Patient Bloodtype Patient rh Status Prepregnancy Weight lbs Domestic Partner Domestic Partner Phone Father Name Animal Sticker Status 05/31/20 15 1 CLOSED Fetus Data First Name Last Name Admitted to NICU Weight (g) Sex Living Outcome Pediatric Complications Fetus ID Race Codes Race Delivery Type 3940.58 05 F Full Term [id number] Vaginal Cyril Calculation Initial Cyril Date Initial [...] Post Complications Tubal Sterilization Discharge Date Comments 06/16/198 7 None 40 Discharge Information Feeding Method Contraceptive Method Maternal HG B and HCT Levels "
--- OUTSIDE RECORDS SUMMARY | 2024-12-24 08:35 | XMS_ITS | Referral Summary ---
Author Organization [facility] [address] [place] [address] Care Team Providers Care Mobile Paramedical Examiner Name Role Phone Edwin Epstein MD Primary [...] on file Legal Sex Female 1:49 AM [facility] Gender Identity Not on file Sexual Orientation Not on file Last Filed Vital Signs Vital Sign Reading Time Taken Comments Blood Pressure 124/80 07/22/2022 4:09 PM [facility] Pulse 85 10/08/2012 2:27 PM [facility] Temperature - - Respiratory Rate - - Oxygen Saturation 99% 10/08/2012 2:27 PM [facility] Inhaled Oxygen Concentration - - Weight 88 kg (194 lb) 07/22/2022 4:09 PM [facility] Height 162.6 cm (5' 4 ) 07/22/2022 4:09 PM [facility] Body Mass Index 33.3 07/22/2022 4:09 PM [facility] Plan of Treatment Not on file Procedures Procedure Name Priority Date/Time Associated Diagnosis Comments PAP AND HIGH RISK HPV, REFLEX TO GENOTYPING Routine 07/22/2022 4:13 PM [facility] Atypical squamous cells of undetermined significance on cytologic smear of cervix (ASC-US) COLONOSCOPY REPORT 05/25/2017 from Last 3 Months or Most Recently Relevant to Health Maintenance Results * Pap and High Risk HPV, reflex to Genotyping (07/22/2022 4:13 PM [facility]) CLINICAL INFORMATION: [facility] Comment:ASCUS HPV+ LMP [facility] Comment:POST MENOPAUSAL Previous Pap [facility] Comment:NONE GIVEN Prev. Bx [facility] Comment:NONE GIVEN SOURCE: [facility] Comment:Cervix, Endocervix Pap, specimen adequacy [facility] [employer] [facility] Comment:SATISFACTORY FOR AMARA LUATION HPV interp [facility] Comment: Negative for intraepithelial lesion or malignancy. Atrophic pattern; predominantly parabasal cells Tack Cleaner Evelio [employer] [facility] Comment: [place](ASCP) CT Screening Location: [place] [address] [place], [place] [address] Comment [facility] [employer] [facility] Comment: EXPLANATORY NOTE: The Pap is [...] High Risk E6/E7 Not Detected NOT DETECTED [place] [facility] Comment: Not Detected High Risk HPV types (16,18,31,33,35,39,45,51,52, 56,58,59,66,68) were not detected. Other HPV types which cause anogenital lesions may be present. The significance of the other types of HPV in malignant processes has not been established. Methodology: Real Time PCR Thin prep 07/22/2022 4:13 PM [facility] 07/23/2022 2:46 AM [facility] Jaida Michelle TILTING SAW OPERATOR LAB CYTOLOGY ORDERABLES Final Re [facility] Performing Organization Address City/State/[facility] Co de Phone Number TYSON [facility] [address] [place] [address] [facility] [address] [facility] [place] [address] * COLONOSCOPY REPORT (05/25/2017) Anatomical Region Laterality Modality Other Provider Scanning GI PROCEDURE ORDERABLES Final Result from Last 3 Months or Most Recently Relevant to Health Maintenance Insurance [employer] OPEN ACCESS Care Teams Mobile Paramedical Examiner Relationship Specialty [place] [address] [facility] [address] PCP - General Internal Medicine 04/06/17
--- OUTSIDE RECORDS SUMMARY | 2024-12-24 08:35 | XMS_ITS | Clinical Summary ---
Author Organization [facility] Physician Office Building [address] [place] [address] Care Team Providers Care Baby Stroller Rental Clerk Name Role Phone Edwin Epstein MD Primary [...] on file Legal Sex Female 1:49 AM RACETRACK STEWARD Gender Identity Not on file Sexual Orientation [...] Comments Blood Pressure 124/80 07/22/2022 4:09 PM RACETRACK STEWARD Pulse 85 10/08/2012 2:27 PM RACETRACK STEWARD Temperature - - Respiratory Rate - - Oxygen Saturation 99% 10/08/2012 2:27 PM RACETRACK STEWARD Inhaled Oxygen Concentration - - Weight 88 kg (194 lb) 07/22/2022 4:09 PM RACETRACK STEWARD Height 162.6 cm (5' 4 ) 07/22/2022 4:09 PM RACETRACK STEWARD Body Mass Index 33.3 07/22/2022 4:09 PM RACETRACK STEWARD Plan of Treatment Health Maintenance Due Date Last Done Comments Breast Cancer Screening-Mammogram 1959 Fall Risk Assessment 1959 Hepatitis C Screening 1959 Osteoporosis Screening-Bone Density Scan 1959 DTaP/Tdap/Td Vaccine (1 - Tdap) 1970 Hepatitis B Screening 1977 Pneumococcal vaccine 65+ (1 of 1 - PCV) 2009 Zoster Vaccine (1 of 2) 2009 Depression Screening 11/28/2022 11/28/2021 Cervical Cancer Screening 07/22/2023 07/22/2022, Well Visit 65+ 2024 11/28/2021 Influenza Vaccine (#1) 2024 Colon Cancer Screening-Colonoscopy 05/25/20272016 Colon Cancer Screening-CT Colonography Discontinued Colon Cancer Screening-DNA Stool Discontinued 05/25/20 Colon Cancer Screening-FIT Discontinued 05/25/2017 Colon Cancer Screening-Sigmoidoscopy Discontinued 05/10 Procedures Procedure Name Priority Date/Time Associated Diagnosis Comments PAP AND HIGH RISK HPV, REFLEX TO GENOTYPING Routine 07/22/2022 4:13 PM RACETRACK STEWARD Atypical squamous cells of undetermined significance on cytologic smear of cervix (ASC-US) COLONOSCOPY REPORT 05/25/2017 from Last 3 Months or Most Recently Relevant to Health Maintenance Results * Pap and High Risk HPV, reflex to Genotyping (07/22/2022 4:13 PM RACETRACK STEWARD) CLINICAL INFORMATION: [facility]ict[facility] Comment:ASCUS HPV+ LMP [employer] [facility] Comment:POST MENOPAUSAL Previous Pap [facility] Comment:NONE GIVEN Prev. Bx [facility] [employer] [facility] Comment:NONE GIVEN SOURCE: [facility] [employer] [facility] Comment:Cervix, Endocervix Pap, specimen adequacy [facility] Comment:SATISFACTORY FOR AMARA LUATION HPV interp [facility] Comment: Negative for intraepithelial lesion or malignancy. Atrophic pattern; predominantly parabasal cells Nurse Private Duty [facility] Comment: MASON CLARK(ASCP) CT Screening Location: [place] [address] [place] [address] Comment [facility] [employer] [facility] Comment: EXPLANATORY NOTE: The Pap is [...] High Risk E6/E7 Not Detected NOT DETECTED [facility] [place] Comment: Not Detected High Risk HPV types (16,18,31,33,35,39,45,51,52, 56,58,59,66,68) were not detected. Other HPV types which cause anogenital lesions may be present. The significance of the other types of HPV in malignant processes has not been established. Methodology: Real Time PCR Thin prep 07/22/2022 4:13 PM RACETRACK STEWARD 07/23/2022 2:46 AM RACETRACK STEWARD Jaida Michelle PROGRAM DIRECTOR/TRAFFIC DIRECTOR LAB CYTOLOGY ORDERABLES Final Re sult [facility] [address] [place] [address] [facility] [address] [place] [address] * COLONOSCOPY REPORT (05/25/2017) Anatomical Region Laterality Modality Other Provider Scanning GI PROCEDURE ORDERABLES Final Result from Last 3 Months or Most Recently Relevant to Health Maintenance Insurance [employer] OPEN ACCESS Care Teams Baby Stroller Rental Clerk Relationship Specialty [place] [address] [address] [facility] [address] [place] [address] PCP - General Internal Medicine 04/06/17
--- OUTSIDE RECORDS SUMMARY | 2024-12-24 08:36 | XMS_ITS | Clinical Summary ---
Author Organization [facility] Address [address] [place] [address] Care Team Providers Care Lure Maker Name Role Phone Unavailable Primary Care Provider Unavailabl e Source Comments [facility],non-owned Affiliates and Associated Physician Practices is amultiple site organization consisting of ambulatory clinics and hospital sitesin [place], [place], [place] and [place]. This disclosure is being madepursuant to the Care Everywhere program and may not contain all information available regarding this patient. Last updated 18.[facility] Social History Tobacco Use Types Packs/Day Years Used Date Smoking Tobacco: Never Assessed Comments Unknown Sex and Gender Information Value Date Recorded Sex Assigned at Not on file Legal Sex Female 12:26 PM SOCIAL SCIENCE ANALYST Gender Identity Not on file Sexual Orientation [...] VACCINE ( - 2023-2 5 season) 2024 DEPRESSION SCREENING 08/10/2024 INFLUENZA VACCINE (Season Ended) 2025 Respiratory Syncytial Virus (RSV) Vaccine Pt: or [...] to complete this topic MENINGOCOCCAL (Group B) VACC INE SHARED DECISION-MAKING Aged Out No longer eligibl e based on patient's age to complete this topic MENINGOCOCCAL GROUPS A/C/Y/W VACCINE Aged Out No longer eligible b ased on patient's age to complete this topic Insurance
--- OUTSIDE RECORDS SUMMARY | 2024-12-24 08:36 | XMS_ITS | Encounter Summary ---
Author Organization [facility] Address [address] [place] [address] Care Team Providers Care Sales Receptionist Name Role Phone Unavailable Primary Care Provider Unavailabl e Encounter Details Date Type Department Care Team (Late st Contact Info) Description 10/09/2023 Lab Requisition [facility] - DermPath Lab [address] [place] [address] Lencho Slater Jr., MD [address] [place] [address] Social History Tobacco Use Types Packs/Day Years Used Date Smoking Tobacco: Never Assessed Comments Unknown Sex and Gender Information Value Date Recorded Sex Assigned at Not on file Legal Sex Female 12:26 PM CONTROLS DESIGNER Gender Identity Not on file Sexual Orientation Not on file documented as of this encounter Plan of Treatment Not on file documented as of this encounter Procedures Procedure Name Priority Date/Time Associated Diagnosis Comments DERMATOPATHOLOGY Routine 10/08/2023 3:33 AM CONTROLS DESIGNER documented in this encounter Results * DERMATOPATHOLOGY (10/08/2023 3:33 AM CONTROLS DESIGNER) Case Report Dermatopathology Report Case: [id number] Authorizing Provider: Lencho Slater Jr., MD Collected: 10/08/2023 03:33 AM Ordering Location: [facility] DermPath Lab Received: 10/09/2023 12:53 PM Pathologist: Kasey Pillai MD Specimen: Skin, right superior posterior neck 1:19 PM CONTROLS DESIGNER DERMATOPATHOLOGY LABORATORY Final Diagnosis Specimen A. 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 1:19 PM [facility] DERMATOPATHOLOGY LABORATORY Gross Description Specimen A: Received is one formalin filled container labeled with the patient's name and designated right superior posterior neck. The specimen consists of a shave biopsy measuring 7x7x3 mm. Jar 0. 1:19 PM [facility] DERMATOPATHOLOGY LABORATORY Microscopic Description Specimen A. SKIN, right superior posterior neck: Sections show a proliferation of blood vessels in lobules lined by uniform endothelial cells and by fibrous septa. The stroma is fibrotic and contains a mixed inflammatory cell infiltrate. The overlying epidermis is eroded. 1:19 PM [facility] DERMATOPATHOLOGY LABORATORY Disclaimer An external and internal positive and negative controls are appropriate for the histochemical, immunohistochemical and immunofluorescence stain(s) in this case (if any), except where stated explicitly. The performance characteristics of the stain(s) cited in this report were developed and its performance characteristic determined by the Dermatopathology Laboratory at [facility], directed by Dr. Nick Huff. These tests need not be, and therefore are not, approved by the [place] Food and Drug Administration. The tests are used for clinical purposes. Billing Codes Specimen Charges Stain Charges 58865 1 1:19 PM [facility] DERMATOPATHOLOGY LABORATORY Embedded Images 1:19 PM [facility] DERMATOPATHOLOGY LABORATORY Pathology/Cytolo gy TISSUE SPECIMEN FROM SKIN / Unknown 10/08/2023 3:33 AM CONTROLS DESIGNER 10/09/2023 12:53 PM CONTROLS DESIGNER us Lencho Slater Jr., MD LAB - PATHOLOGY/CYTOLOG Y ORDERABLES Final Result DERMATOPATHOLOGY LABORATORY [facility] - Department of Dermatology [address] [place] [address], [facility] [phone] documented in this encounter Visit Diagnoses Not on filedocumented in this encounter
== END 2024-12-24 08:32 | disposition home or self-care (01) ==
LOC: ANHIMG 08:34
PROVIDERS: PCP Internal Medicine Geriatric Medicine; Visit Provider Obstetrics & Gynecology
DX: Z12.31 Encounter for screening mammogram for malignant neoplasm of breast (principal); R92.8 Other abnormal and inconclusive findings on diagnostic imaging of breast
CPT/HCPCS: 77063; 77067

== ENCOUNTER 2025-01-11 12:57 | Outpatient (CLI) | payer MEDICARE, SELFPAY ==
--- NOTE | ~2025-01-11 | MM_ITS ---
Examination: MM diagnostic ANAND RT W cristino INDICATION: 64-year old female; BI-RADS 0, callback to evaluate Right breast asymmetry COMPARISON: 12/24/2024 through 08/17/2012 TECHNIQUE: Digital breast tomosynthesis True lateral view and spot compression CC views of Right christal st were obtained with computer-aided detection to assist in interpretation of the study. FINDINGS: There are scattered areas of fibroglandular density. The asymmetry seen in the central retroareolar Right breast on the screening mammogram does not persi st with additional views, compatible with overlapping breast tissue.. IMPRESSION: Right breast asymmetry represents superimposition of fibroglandular tissue. No further investigation necessary. RECOMMENDATION: Annual screening mammography due in 12 months BI-RADS 2, BENIGN Reviewed, dictated and finalized at location B.
--- OUTSIDE RECORDS SUMMARY | 2025-01-11 13:03 | XMS_ITS | Data Portability ---
Author [facility] Address [address] [place] [address] Assessment No assessment recorded. Plan of Treatment Reminders Order Date Submit Date Provider Last Modified By Organization Details Last Modified Time Details Appointments None recorded. Lab pap, IG + HPV, cervical 2018 019 [facility], [address], [address], [place], [address], 9 06:09:11 pap, IG + HPV, cervical 2014 015 [facility], [address], [address], [place], [address], 5 07:30:26 Referral gastroent erologist referral 2014 015 HOLLY Bob MD, [address] [place], [address], 5 10:15:39 general surgeon referral 2014 016 Jamil Kelly MD, [address], [place], [address], 6 12:43:07 Procedures None recorded. Surgeries None recorded. Imaging MAMMO, screening , bilateral 2018 019 [facility], [address], [place], [address], 9 17:41:35 mammogram , screening [address] - Breast Ctr, [address], [place] [address], [place], [address], 5 09:13:15 Medication Orders estradiol 10 mcg vaginal tablet 2018 019 [facility] [address], [address], 9 17:42:18 multivita min tablet 2018 019 [facility] [address], [address], 9 17:41:30 Calcium with Vitamin D 600 mg-10 mcg (400 unit) tablet 2018 019 [facility] [address], [address], 9 17:41:31 Patient TargetsNo targets recorded. Patient Instructions Encounter Date Encounter Id Patient Instructions Last Modified By Organization Details Last Modified Time 05/31/2015 [id number] hemorrhoids: care instructions [email or web address] Not available 06/01/2015 09:40:27 09/23/2018 [id number] kegel exercises [email or web address] Not availabl e 09/23/2018 17:40:25 mammogram: about this test radha Not available 09/23/2018 17:41:35 Reason for Referral Referring Physician: Eric price PHYSICAL CHEMIST, Encounter Date: 05/31/2015 General Surgeon Referral for Hemorrhoids Referring Physician: Eric Sloan PHYSICAL CHEMIST, Encounter Date: 05/31/2015 Results Created Date Observation Date Name Description Value Unit Range Abnormal Flag Note LastModifiedBy Organization Detail LastModifiedTime 06/01/20 15 06/04/2015 pap, IG + HPV, cervi giuliana HPV aptima NEGATI VE negati ve THIS TEST DETEC TS FOURT EEN HIGH- RISK HPV TYPES (16/1 8/31/ 33/35 /39/4 5/ 51/52 /56/5 8/59/ 66/68 ) WITHO PAT BARNHART ATION . Not Available [facility] ([facility]) [address], [place], [address], 06/05/2015 07:30:26 06/01/20 15 06/05/2015 pap, IG + HPV, cervi giuliana diagnosis: SEEMA JOSEPH ALESIA FOR INTRA EPITH ELIAL LESIO N AND JAN LAI . CELLU LAR RAMOS ES ASSOC IATED WITH ATROP HY ARE PRESE NT. Not Available [facility] ([facility]) [address], [place], [address], 06/05/2015 07:30:26 06/01/20 15 06/05/2015 pap, IG + HPV, cervi giuliana specimen adequacy: SEEMA Horan SATIS FACTO RY FOR EVALU ATION . ENDOC ERVIC AL COMPO NENT MAY NOT BE DISTI NGUIS HED IN CASES OF ATROP HY. Not Available [facility] ([facility]) [address], [place], [address], 06/05/2015 07:30:26 06/01/20 15 06/05/2015 pap, IG + HPV, cervi giuliana performed by: SEEMA Betancourt, CYTOTj Horan (ASCP ) Not Available [facility] ([facility]) [address] [place], [address], 06/05/2015 07:30:26 06/01/20 15 06/05/2015 pap, IG + HPV, cervi giuliana . . Not Available [facility] ([facility]) [address] [place], [address], 06/05/2015 07:30:26 06/01/20 15 06/05/2015 pap, IG [...] . Not Available [facility] ([facility]) [address] [place], [address], 06/05/2015 07:30:26 06/01/20 15 06/05/2015 pap, IG + HPV, cervi giuliana test methodology: COMMEN T THIS LIQUI D BASED THINP REP(R ) PAP TEST WAS CÉSAR LUNA WITH THE USE OF AN IMAGE GUIDE Kamilah Hooker. Not Available [facility] ([facility]) [address] [place], [address], 06/05/2015 07:30:26 09/23/19 19 09/27/2018 pap, IG + HPV, cervi giuliana diagnosis: Commen t NEGAT ALESIA FOR INTRA EPITH ELIAL LESIO N OR JAN LAI . CELLU VISHAL RAMOS ES ASSOC IATED WITH ATROP HY ARE PRESE NT. Not Available [facility] ([facility]) [address] [place], [address], 09/28/2018 06:09:11 09/23/1909/27/2018 pap, IG + HPV, cervi giuliana specimen adequacy: Commen t Satis facto ry for evalu ation . Endoc ervic al compo nent may not be disti nguis hed in cases of atrop hy. Not Available [facility] ([facility]) [address] [place], [address], 09/28/2018 06:09:11 09/23/19 19 09/27/2018 pap, IG + HPV, cervi giuliana clinician provided ICD10: Commen t Z01.4 19 Not Available [facility] ([facility]) [address] [place], [address], 09/28/2018 06:09:11 09/23/1909/27/2018 pap, IG + HPV, cervi giuliana performed by: Toño Zuulaga (ASCP ) Not Available [facility] ([facility]) [address] [place], [address], 09/28/2018 06:09:11 09/23/1909/27/2018 pap, IG + HPV, cervi giuliana . . Not Available [facility] ([facility]) [address] [place], [address], 09/28/2018 06:09:11 09/23/1909/27/2018 pap, IG + HPV, [...] . Not Available [facility] ([facility]) [address] [place], [address], 09/28/2018 06:09:11 09/23/1909/27/2018 pap, IG + HPV, cervi giuliana test methodology: Seema horan This liqui d based ThinP rep(R ) pap test was scree kevin with the use of an image guide kamilah hooker. Not Available [facility] ([facility]) [address] [place], [address], 09/28/2018 06:09:11 09/23/1909/28/2018 pap, IG + HPV, cervi giuliana HPV aptima Negati ve negati ve This test detec ts fourt een high- risk HPV types (16/1 8/31/ 33/35 /39/4 5/ 51/52 /56/5 8/59/ / ) witho ut puneete renti ation . Not Available [facility] ([facility]) [address], [place], [address], 09/28/2018 06:09:11 06/06/20 15 06/06/2015 dexa PT NAME: DAVID SELBY : 1959 PT SEX/AG E: / PT ACCT NUMBER : [id number] PT MR#: [id number] ROOM/B ED: PT STATUS : REG CLI DATE OF EXAMIN ATION: ORDERI PHYSIC SALLIE: ERIC ALBERT M.Sujatha ATTEND [facility] PHYSIC SALLIE: ERIC ALBERT , M.D. DICTAT [facility] PHYSIC SALLIE: Tj CRUZ M.D. 042 [id number] 6.001A SC 17:56: 00 41.007 2MAM (ANDREW) : DIGITA [...] ON HOSPIT [place] [address] [place] [address] [facility] (Imaging) [address], [place], [address], 09/23/2018 17:44:27 06/28/20 15 06/27/2015 imagi ng/di theodoraos tic resul t No observ ation record ed. [facility] Not Available 09/23 17:44:27 Result Notes None recorded. Problems Name Problem SNOMED Code Status Onset Date Resolution Date Notes Provider Name and Address Organization Details Recorded Time Hemorrhoids [id number] Active Eric Nathalia evangelista [facility] 5 19:35:23 Problem Notes None recorded. Procedures Surgical History Date Name Laterality Status Provider Name and Address Organization Details Recorded Time 6 partial carpectomy completed Adalgisa Sanders MA [facility] 09/23/2018 17:14:41 6 Orthopedic Surgery completed Adalgisa SandersEMETERIO [place] - [facility] 09/23/2018 17:15:53 5 Most Recent Mammogram completed Adalgisa SandersEMETERIO [place] - [facility] 09/23/2018 17:13:28 5 Date of Last Pap Smear completed Adalgisa MitchellEMETERIO [place] [facility] 09/23/2018 17:12:55 1 Orthopedic Surgery completed Nan SimpsonEMETERIO [place] [facility] 05/31/2015 18:04:19 1 Myomectomy completed Nan RichardEMETERIO [place] - [facility] 05/31/2015 18:04:19 1 Orthopedic Surgery completed Adalgisa MitchellshawEMETERIO [place] [facility] 09/23/2018 17:15:21 Imaging Results None recorded. Procedure Notes None recorded. Medical Equipment None [...] Available Not Available Not Avai lable Fluvirin 3705-1302 45 mcg (15 mcg x 3)/0.5 mL intramuscula r suspension 09/23 completed Not Available Not Available Not Available Vitals Date Recorded Body height Body mass index (BMI) Body weight Systolic blood pressure Diastolic blood pressure Provider Name and Address Organization Details Last Updated DateTime 09/23/2018 162.56 cm 31.4 kg/m2 62220.4 g 138 mm[Hg] 84 mm[Hg] Adalgisa Sanders MA [facility] 9 17:20:33 Date Recorded Body height Body mass index (BMI) Body weight Systolic blood pressure Diastolic blood pressure Provider Name and Address Organization Details Last Updated DateTime 05/31/2015 162.56 cm 29 kg/m2 07732.11 053 g 154 mm[Hg] 90 mm[Hg] Nan Simpson MA [facility] 5 18:14:33 Social History Question Answer Notes LastModified by Organizat ion Details LastModified Time Tobacco Smoking Status Never Smoker Nan Simpson MA [facility] 05/31/2015 18:08:00 Do You Have An Advance [...] Problems N Kidney or Bladder Problems N Lung Disease N GI Problems N Depression N Acne N Eating Disorder N Breast Problem N Anemia N Anesthesia Complications N Headaches/Migraines N Ovarian Cancer N Diabetes N Anxiety Disorder N Blood Transfusions N Arthritis N Polyps [...] SNOMED-CT Code Diagnosis ICD10 Code Diagnosis Note [id number] [facility] [address] [place] [address] 05/31/2015 15:40:55 05/31/2015 19:38:14 Gynecologic examination 94110323 Z01.419 Screening mammography 24 481901 Z12.31 Hemorrhoids 49362993 K64 .9 [id number] Eric Sloan MD [facility] (PHYSICAL CHEMIST) [address] [place] [address] 09/23/2018 15:53:37 09/24/2018 12:57:27 Gynecologic examination 29892016 Z01.419 Screening mammography 24 977148 Z12.31 Cystocele without uterine prolapse 92865376 N81.10 Health Concerns Section Related Observation LastModified by Organization Detai ls LastModified Time None Recorded Concern Status LastModified by Organization Details LastModified Time None Recorded Advance Directives Directive N: Payers Encounter Date Sequence Insurance Name Policy Number Policy Harden Covered Member ID Harden Member ID Guarantor Name 05/31/2015 1 [facility] (MEDICAID HMO) [id number] Monserrat Patel [id number] Monserrat Patel 09/23/2018 1 [facility] (MEDICAID HMO) [id number] Monserrat Patel [id number] Monserrat Patel Notes Date Note Type Note Provider Name and Address Organization Details Recorded Time 09/23/2018 text/html Annual GYNReport ed bypatient.Urinary symptoms:No hematuria Vulva:No genital lesion Vagina:Normal vaginal discharge Breast:No breast pain; No breast lump; No nipple discharge Preventive measures:Encourage self breast examination; Encourage regular exercise; Encourage no tobacco use; Encourage regular mammograms starting age [age]yo [id number] here for [employer]. Patient reports she thinks she has a possible prolapse. Eric Sloan [facility] [place] - [facility] 09/24/2018 12:22:32 OBGyn Episode Ob Episode Information Episode Created Date Number of Fetuses Patient Bloodtype Patient rh Status Prepregnancy Weight lbs Domestic Partner Domestic Partner Phone Father Name Pool Cleaner Status 05/31/20 15 1 CLOSED Fetus Data First Name Last Name Admitted to NICU Weight (g) Sex Living Outcome Pediatric Complications Fetus ID Race Codes Race Delivery Type 3940.58 05 F Full Term [id number] Vaginal Cyril Calculation Initial Cyril Date Initial [...]
--- OUTSIDE RECORDS SUMMARY | 2025-01-11 13:04 | XMS_ITS | Clinical Summary ---
Author Organization [facility] Address [address] [place] [address] Care Team Providers Care Signal Technician Name Role Phone Unavailable Primary Care Provider Unavailabl e Source Comments [facility] [employer],non-owned Affiliates and Associated Physician Practices is amultiple site organization consisting of ambulatory clinics and hospital sitesin [place], [place], [place] and [place]. This disclosure is being madepursuant to the Care Everywhere program and may not contain all information available regarding this patient. 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
--- OUTSIDE RECORDS SUMMARY | 2025-01-11 13:04 | XMS_ITS | Encounter Summary ---
Author Organization [facility] Address [address] [place] [address] Care Team Providers Care Track Welder Name Role Phone Unavailable Primary Care Provider Unavailabl e Encounter Details Date Type Department Care Team (Late st Contact Info) Description 10/09/2023 Lab Requisition [facility] - DermPath Lab [address] [place] [id number] Lencho Slater Jr., MD [address] [place] [address] Social History Tobacco Use Types Packs/Day Years Used Date Smoking Tobacco: Never Assessed Comments Unknown Sex and Gender Information Value Date Recorded Sex Assigned at Not on file Legal Sex Female 12:26 PM [facility] Gender Identity Not on file Sexual Orientation Not on file documented as of this encounter Plan of Treatment Not on file documented as of this encounter Procedures Procedure Name Priority Date/Time Associated Diagnosis Comments DERMATOPATHOLOGY Routine 10/08/2023 3:33 AM [facility] documented in this encounter Results * DERMATOPATHOLOGY (10/08/2023 3:33 AM [facility]) Case Report Dermatopathology Report Case: [id number] Authorizing Provider: Lencho Slater Jr., MD Collected: 10/08/2023 03:33 AM Ordering Location: [facility] Received: 10/09/2023 12:53 PM Pathologist: Kasey Pillai MD Specimen: Skin, right superior posterior neck 1:19 PM [facility] Final Diagnosis Specimen A. 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 1:19 PM [facility] Gross Description Specimen A: Received is one formalin filled container labeled with the patient's name and designated right superior posterior neck. The specimen consists of a shave biopsy measuring 7x7x3 mm. Jar 0. 1:19 PM [facility] Microscopic Description Specimen A. SKIN, right superior posterior neck: Sections show a proliferation of blood vessels in lobules lined by uniform endothelial cells and by fibrous septa. The stroma is fibrotic and contains a mixed inflammatory cell infiltrate. The overlying epidermis is eroded. 1:19 PM [facility] Disclaimer An external and internal positive and negative controls are appropriate for the histochemical, immunohistochemical and immunofluorescence stain(s) in this case (if any), except where stated explicitly. The performance characteristics of the stain(s) cited in this report were developed and its performance characteristic determined by the Dermatopathology Laboratory at [facility], directed by Dr. Nick Huff. These tests need not be, and therefore are not, approved by the [place] Food and Drug Administration. The tests are used for clinical purposes. Billing Codes Specimen Charges Stain Charges 93082 1 1:19 PM [facility] Embedded Images 1:19 PM [facility] Pathology/Cytolo gy TISSUE SPECIMEN FROM SKIN / Unknown 10/08/2023 3:33 AM [facility] 10/09/2023 12:53 PM [facility] us Lencho Slater Jr., MD LAB - PATHOLOGY/CYTOLOG Y ORDERABLES Final Result DERMATOPATHOLOGY LABORATORY [facility] - Department of Dermatology [address] [place] [address], [facility] [phone] documented in this encounter Visit Diagnoses Not on filedocumented in this encounter
== END 2025-01-11 12:58 | disposition home or self-care (01) ==
LOC: ANHIMG 13:00
PROVIDERS: PCP Internal Medicine Geriatric Medicine; Visit Provider Nurse Practitioner
DX: R92.8 Other abnormal and inconclusive findings on diagnostic imaging of breast (principal)
CPT/HCPCS: 77061; 77065; G0279